=== PATIENT | female | born 1995 | race Caucasian/White ===

== ENCOUNTER 2016-09-19 17:46 | Inpatient (IN) ==
[2016-09-19] MEDS ORDERED: 0.9 % Sodium Chloride 1,000 ML IVC ONE (19:45)
[2016-09-19] MEDS ORDERED: Piperacillin/Tazobactam 3.375 GM in D5% in Water (Mini-Bag+) 100 ML IVPB ONE (19:50)
[2016-09-19] MEDS ORDERED: Ipratropium/Albuterol Neb 3 ML IH STA (19:50)
--- NOTE | 2016-09-19 19:54 | Emergency Department Note ---
Disposition Clinical Impression: Empyema of lung Sepsis Qualifiers: Sepsis type: Streptococcus group A Qualified Code(s): A40.0 - Sepsis due to streptococcus, group A Disposition: Admitted As Inpatient Condition: Fair SOB HPI - General Chief Complaint: ED Shortness of Breath/Dyspnea Stated Complaint: sent from PCP office for CT scan Time Seen by Provider: 09/19/16 19:33 Source: patient Limitations: no limitations Nursing Notes Reviewed: Yes Vital Signs Reviewed: Yes - History of Present Illness 21-year-old female presents to the emergency department with dyspnea. She has been short of breath for over a week. She saw a doctor about a week ago at that time a chest x-ray showed a left-sided pneumonia with effusion and was started on Levaquin. Despite finishing the antibiotic she had worsening dyspnea , intermittent fevers, cough and repeat x-ray today showed a cavitary lesion concerning for empyema. About a month ago she was diagnosed with strep throat that progressed into what sounds like sialoadenitis and was admitted at a local hospital in [place] for 3 days receiving IV antibiotics. In the meantime that seemed to clear up but then she developed respiratory symptoms. She has no history of clots or DVTs. She does have a history of polycystic ovarian syndrome, hypothyroidism and takes control. She denies any lower extremity swelling, pain or edema. She reports being on steroids about 2 weeks ago for generalized body aches. - Related Data Home Medications Medication Instructions Recorded Confirmed Ascorbate Calcium [Vitamin C] 500 mg PO DAILY 09/19/16 09/19/16 Cyanocobalamin (Vitamin B-12) 1,000 mcg PO DAILY 09/19/16 09/19/16 [Vitamin B12] Ibuprofen [Motrin] 600 mg PO Q6HR PRN 09/19/16 09/19/16 Levofloxacin [Levaquin] 750 mg PO DAILY 09/19/16 09/19/16 Levothyroxine [Synthroid] 50 mcg PO DAILY 09/19/16 09/19/16 Metformin [Glucophage] 2,000 mg PO DAILY 09/19/16 09/19/16 Norgestimate-Ethinyl Estradiol 1 tab PO DAILY 09/19/16 09/19/16 [Sprintec 28 Day Tablet] Allergies Allergy/AdvReac Type Severity Reaction Status Date / Time No Known Allergies Allergy Verified 09/19/16 17:52 All systems ED: reviewed and negative except as stated. Constitutional: Reports: fever Cardiovascular: Reports: chest pain (intermittent pressure), dyspnea on exertion , syncope Respiratory: Reports: cough, dyspnea, sputum production (thick and yellow). 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 No murmurs, rubs or gallops. Respiratory: Expiratory crackles on the left. She is breathing fast with a respiratory rate around 35. She has intermittent dry cough. She is able to speak in full sentences. Abdomen: Soft, nontender. No guarding, rebound or rigidity. Negative Chavez's , no point tenderness at McBurney's. Eyes: Conjunctiva clear without any scleral icterus HENT: Tympanic membranes are clear bilaterally without any redness or bulging. She has no palpable cervical adenopathy. Tonsils are not swollen and uvula is midline. Moist mucous membranes. No oral mucosal lesions. No difficulty swallowing, speaking or breathing. No stridor. Neuro: Alert and oriented 3, no motor or sensory deficits Musculoskeletal: No joint tenderness or swelling. There is no edema, calf tenderness, asymmetry or any signs of DVT Skin: No lesions. No diaphoresis. Normal turgor. Normal color Psych: Appropriate - General Limitations: no limitations General appearance: alert, in no apparent distress Course Course Narrative: presents to the emergency department with 1 week of progressive dyspnea, cough and fevers. A CTA was ordered which shows empyema at the left lung base with a large loculated component which extends along the lateral aspect of the left thoracic cavity causing extensive compressive atelectasis. Patient is febrile with a white count of 20,000 and we treated for sepsis with broad-spectrum antibiotics. She just finished a course of Levaquin so we added vancomycin and Zosyn in the emergency department. She was given fluids. Her lactate was 1.0. Normal renal function. Patient's vitals have been stable. I discussed this with the on-call cloth mercerizer operator, Dr. Villagran who feels this can be managed at this hospital and likely will be taken care of by cardiothoracic surgery. I then discussed with the on-call CT surgeon, Dr. Hurtado who states he is comfortable managing and taking care of this patient. Antibiotics have been given in the emergency department. I spoke with the on-call hospitalist, Dr. Borrego who accepted for admission, no further orders at this time. Vital Signs Temperature 98.8 F 09/19/16 17:50 Pulse Rate 128 09/19/16 17:50 Respiratory Rate 16 09/19/16 17:50 Blood Pressure 123/80 09/19/16 17:50 O2 Sat by Pulse Oximetry 95 09/19/16 17:50 Temperature 97.7 F 09/21/16 15:30 Pulse Rate 89 09/21/16 18:00 Respiratory Rate 23 09/21/16 19:42 Blood Pressure 103/66 09/21/16 18:00 O2 Sat by Pulse Oximetry 95 09/21/16 19:42 Oxygen Delivery Oxygen Delivery Room Air Shortness of Breath/Dyspnea - Lab Data Result diagrams: 09/21/16 12:15 09/21/16 19:45 Lab Results 09/19/16 09/19/16 09/19/16 Range/Units 20:05 20:05 20:05 WBC 20.2 H (4.3-11.1) K/mcL RBC 4.07 (3.82-4.97) M/mcL Hgb 11.4 L (11.5-15.4) g/dL Hct 34.6 L (35.3-44.9) % MCV 85.0 (83.0-100.0) fL MCH 28.0 (28.0-33.3) pg MCHC 32.9 (31.6-35.5) g/dL RDW 14.2 (11.5-14.5) % Plt Count 364 (140-400) K/mcL MPV 10.1 (9.4-12.4) fL Immature Gran % 5.8 H (0-4) % Seg Neutrophils % 75.2 % Lymphocytes % 10.8 % Monocytes % 7.4 % Eosinophils % 0.2 % Basophils % 0.6 % Neutrophils # 15.2 H (1.6-8.9) K/mcL Lymphocytes # 2.2 (0.6-4.6) K/mcL Monocytes # 1.5 H (0.0-1.3) K/mcL Eosinophils # 0.0 (0.0-0.6) K/mcL Basophils # 0.1 (0.0-0.2) K/mcL Toxic Granulation Present A (Not Present) Platelet Estimate Normal (Normal) Sodium 137 (136-145) mEq/L Potassium 3.9 (3.5-4.5) mEq/L Chloride 101 (98-109) mEq/L Carbon Dioxide 23 (19-29) mEq/L BUN 6 L (7-20) mg/dL Creatinine 0.77 (0.57-1.11) mg/dL Est GFR ( Amer) > 60 (> 60) Est GFR (Non-Af Amer) > 60 (> 60) BUN/Creatinine Ratio 8 (6-26) Glucose 89 (70-99) mg/dL POC Glucose (58-89) Calculated Osmolality 281 (280-300) Lactic Acid (0.5-2.2) mmol/L Calcium 9.0 (8.6-10.8) mg/dL Troponin I 0.00 (0-0.03) ng/mL TSH 1.706 (0.350-4.840) mcIU/mL 09/19/16 09/20/16 Range/Units 20:05 00:24 WBC (4.3-11.1) K/mcL RBC (3.82-4.97) M/mcL Hgb (11.5-15.4) g/dL Hct (35.3-44.9) % MCV (83.0-100.0) fL MCH (28.0-33.3) pg MCHC (31.6-35.5) g/dL RDW (11.5-14.5) % Plt Count (140-400) K/mcL MPV (9.4-12.4) fL Immature Gran % (0-4) % Seg Neutrophils % % Lymphocytes % % Monocytes % % Eosinophils % % Basophils % % Neutrophils # (1.6-8.9) K/mcL Lymphocytes # (0.6-4.6) K/mcL Monocytes # (0.0-1.3) K/mcL Eosinophils # (0.0-0.6) K/mcL Basophils # (0.0-0.2) K/mcL Toxic Granulation (Not Present) Platelet Estimate (Normal) Sodium (136-145) mEq/L Potassium (3.5-4.5) mEq/L Chloride (98-109) mEq/L Carbon Dioxide (19-29) mEq/L BUN (7-20) mg/dL Creatinine (0.57-1.11) mg/dL Est GFR ( Amer) (> 60) Est GFR (Non-Af Amer) (> 60) BUN/Creatinine Ratio (6-26) Glucose (70-99) mg/dL POC Glucose 162 H (58-89) Calculated Osmolality (280-300) Lactic Acid 1.0 (0.5-2.2) mmol/L Calcium (8.6-10.8) mg/dL Troponin I (0-0.03) ng/mL TSH (0.350-4.840) mcIU/mL - EKG Data EKG attestation: Yes I reviewed and interpreted this EKG. EKG results narrative: EKG sinus tach at 132. Normal axis. Normal QRS and ST segments. No old for comparison. Critical Care Time Critical Care Time: Yes Total Critical Care Time: 35 Attestation: Critical care performed: Time is exclusive of separately billable procedures. Time includes: direct patient care, patient reassessment, coordination of patient care, interpretation of data (laboratory data, radiology data, and respiratory data), review of patient's medical records, medical consultation and documentation of patient care. Procedures included in critical care time: Procedures excluded from critical care time: Attestation Statement - Attestation Attestation: I examined this patient and my medical decision-making was reviewed with the REVIEW ASSISTANT/PA/Advanced Practice Nurse/Resident Physician. I agree with the documented findings, disposition and treatment plan as described except to the extent set forth below. Patient to the emergency department with difficulty in breathing. Patient recently seen by her PCP and diagnosed with pneumonia. She has been on Levaquin. They did an outpatient chest x-ray today and she was sent to the ED. On exam she is awake alert no acute distress. She has diminished breath sounds in the left base. Diffuse rhonchi and wheezing. Plan. Patient will large effusion will likely need a thoracentesis. Will check CT labs and admit.
[2016-09-19 20:21] LABS: Basophils # 0.1 K/mcL (0.0-0.2); Basophils % 0.6 %; Eosinophils % 0.2 %; Hematocrit 34.6 % (35.3-44.9); Hemoglobin 11.4 g/dL (11.5-15.4); Immature Granulocytes % 5.8 % (0-4); Lymphocytes # 2.2 K/mcL (0.6-4.6); Lymphocytes % 10.8 %; Mean Corpuscular HGB Conc 32.9 g/dL (31.6-35.5); Mean Platelet Volume 10.1 fL (9.4-12.4); Monocytes # 1.5 K/mcL (0.0-1.3); Monocytes % 7.4 %; Neutrophils # 15.2 K/mcL (1.6-8.9); Platelet Count 364 K/mcL (140-400); Red Blood Count 4.07 M/mcL (3.82-4.97); Red Cell Distribution Width 14.2 % (11.5-14.5); Segmented Neutrophils % 75.2 %
[2016-09-19 20:36] LABS: BUN/Creatinine Ratio 8 (6-26); Blood Urea Nitrogen 6 mg/dL (7-20); Carbon Dioxide 23 mEq/L (19-29); Chloride 101 mEq/L (98-109); Glucose 89 mg/dL (70-99); Osmolality,Calculated 281 (280-300); Potassium 3.9 mEq/L (3.5-4.5); Sodium 137 mEq/L (136-145); eGFR For African Americans > 60 (> 60); eGFR For Non-African Americans > 60 (> 60)
[2016-09-19 20:43] LABS: Toxic Granulation Present (Not Present)
[2016-09-19 20:44] LABS: Platelet Estimate Normal (Normal)
[2016-09-19 20:58] LABS: Thyroid Stimulating Hormone 1.706 mcIU/mL (0.350-4.840)
[2016-09-19] MEDS ORDERED: Naloxone 0.4 MG/ML INJ IVP PRN (21:47)
[2016-09-19] MEDS ORDERED: Vancomycin 1,500 MG in D5% in Water 250 ML IVPB SCH ×2 (22:00→23:45)
[2016-09-19] MEDS ORDERED: Vancomycin 1,500 MG in D5% in Water 250 ML IVPB ONE (22:00)
--- NOTE | 2016-09-19 23:05 | Internal Med History&Physical ---
Date of Encounter: 09/19/16 Time of Encounter: 23:03 Assessment and Plan (1) Sepsis Current visit: Yes Status: Acute Patient had streptococcal sore throat about 3 weeks ago complicated by what appears to be sialadenitis. She was given steroids. She developed left-sided chest pain which is of breath, fever and chills. Exam reveals reduced breath sounds in the left lower lung. CT scan reveals evidence of empyema/loculated effusion on the left side. Patient will be admitted to inpatient status with a diagnosis of empyema. High risk due to need for chest tube placement for the resolution of her empyema. Expected discharge disposition is to home. Cardiothoracic surgery has been consulted. Broad-spectrum antibiotic therapy for now. Once the patient has chest tube placed, can de-escalate antibiotic therapy. Pain control. Breathing treatments. Patient developed empyema likely due to being on steroids which caused immunosuppression. However, patient's maternal aunt has a history of recurrent histoplasmosis. This is concerning for possible C5-9 deficiency. After the patient is discharged, screening for deficiency with CH50 levels should be considered. Qualifiers: Sepsis type: Streptococcus group A Qualified Code(s): A40.0 - Sepsis due to streptococcus, group A (2) Empyema of lung Current visit: Yes Status: Acute As above. Cardiac thoracic surgery consult. Broad spectrum antibody therapy. Patient requires Chest tube replacement for clearance of empyema. (3) Hypothyroidism Current visit: Yes Status: Chronic Check TSH. Continue home dose of Synthroid. Qualifiers: Hypothyroidism type: acquired Qualified Code(s): E03.9 - Hypothyroidism, unspecified (4) Polycystic ovarian disease Current visit: Yes Status: Chronic Hold metformin while the patient is hospitalized. Resume the time of discharge. (5) Obesity (BMI 30-39.9) Current visit: No Status: Chronic Internal Medicine - H&P: HPI Chief complaint: Chest pain; Shortness of breath Admitted From: Emergency Dept Plans for Post Hospital Care: Home History of present illness: Ms. Christian is a 21 year old female who presented to the hospital due to chest pain on her left side associated with shortness of breath. Patient had developed a streptococcal sore throat on August 28 and was admitted and received intravenous antibiotics for the same. The course was complicated by development of salivary gland infection. The patient was started on steroids and initially received intravenous steroids and was sent home on by mouth antibiotics and steroids for a 10 day course. She finished the steroids on September 04. On September 05, she started experiencing left-sided chest pain that was sharp and stabbing in nature which was worsening with deep breaths and 6/10 in intensity without any radiation. No relieving factors. The patient presented to the primary care physician and a chest x-ray was performed. It revealed left lower lobe pneumonia. The patient was given outpatient antibiotic therapy with Levaquin. However, the patient continued to have fever and chills and worsening chest pain. She was also experiencing shortness of breath with minimal to moderate activity. She had some nausea and had an episode of vomiting. Hence, she presented to her primary care physician again and underwent a chest x-ray which showed worsening left-sided pleural effusion. She was sent to the emergency room. A CT scan of the chest was done which revealed loculated pleural effusion on the left side concerning for empyema. The patient is being admitted for the same. She reports that she had a fever of 103 yesterday at home. Denies palpitations or feeling lightheaded. Past Med Surg Social Fam HX - Past Medical History Attestation: Yes The following information was validated with the patient. Source: patient Medical history: thyroid disease, other (PCOD) Psychiatric history: no psych history - Past Surgical History Surgical History: no surgical history - Social History Smoking Status: Never smoker Alcohol use: occasionally Drug use: none Current living situation: Home, With Family Activity Level: Independent ambulation Recent Out of Country Travel Within the Last 8 Weeks: No - Family History Maternal Hx Family Respiratory Disorders: Yes (Histoplasmosis recurrent in maternal aunt) Mother Hx Family Cardiac Disorders: Yes (HTN) Internal Medicine - H&P: Meds Ascorbate Calcium [Vitamin C] 500 mg PO DAILY 09/19/16 [History] Cyanocobalamin (Vitamin B-12) [Vitamin B12] 1,000 mcg PO DAILY 09/19/16 [History ] Ibuprofen [Motrin] 600 mg PO Q6HR PRN 09/19/16 [History] Levofloxacin [Levaquin] 750 mg PO DAILY 09/19/16 [History] Levothyroxine [Synthroid] 50 mcg PO DAILY 09/19/16 [History] Metformin [Glucophage] 2,000 mg PO DAILY 09/19/16 [History] Norgestimate-Ethinyl Estradiol [Sprintec 28 Day Tablet] 1 tab PO DAILY 09/19/16 [History] Allergies No Known Allergies Allergy (Verified 09/19/16 17:52) All Systems PM: A 10-system review of systems was performed and is negative for pertinent findings except as documented above in the HPI. Review of systems: 10 systems have been reviewed and are negative except as mentioned in the history of present illness - Constitutional Vitals: Temp Pulse Resp BP Pulse Ox 102.6 F H 128 18 118/80 95 09/19/16 21:11 09/19/16 21:43 09/19/16 21:43 09/19/16 21:43 09/19/16 21:43 Exam: Gen.: Lying in bed. Moderate distress. Eyes: Pupils equal, round and reactive to light. Extraocular muscles intact. ENT: Moist mucous membranes. No oropharyngeal erythema or discharge. Chest: Reduced breath sounds left lower lobe. Tenderness to palpation. CVS: First and second heart sounds present. No murmurs, rubs or gallops. Tachycardia present. Abdomen: Soft, nontender, obese. Bowel sounds present. No hepatosplenomegaly. Skin: No decubitus ulcers appreciated. EDGE BONDER: No focal neuro deficits present. Psychiatric: Alert, awake and oriented to time, place and person. Lymphatic system: No lymphadenopathy appreciated Internal Med - H&P Results - Labs CBC & Chem 7: 09/19/16 20:05 09/19/16 20:05 Labs: Short CBC 09/19/16 Range/Units 20:05 WBC 20.2 H (4.3-11.1) K/mcL Hgb 11.4 L (11.5-15.4) g/dL Hct 34.6 L (35.3-44.9) % Plt Count 364 (140-400) K/mcL Neutrophils # 15.2 H (1.6-8.9) K/mcL BMP 09/19/16 20:05 Sodium 137 Potassium 3.9 Chloride 101 Carbon Dioxide 23 BUN 6 L Creatinine 0.77 Glucose 89 Calcium 9.0 Cardiac Enzymes 09/19/16 Range/Units 20:05 Troponin I 0.00 (0-0.03) ng/mL - EKG Data -: EKG Interpreted by Myself EKG shows normal: sinus rhythm, ST-T waves (No ST-T wave changes suggestive of ischemia) Rate: tachycardia - Impressions ITS Impressions Chest CTA 09/19/16 19:46 IMPRESSION: Findings are compatible with empyema at the left lung base, with a large loculated component which extends along the lateral aspect of the left thoracic cavity and causes extensive compressive atelectasis. D/ / 09/19/2016 21:24:33 Robert Yang MD / robert Interpreting Provider: Robert Yang MD - Diagnostic Studies CT scan - chest Status: image reviewed by me (Large left empyema/loculated effusion)
[2016-09-19] MEDS ORDERED: Ketorolac 15 MG/ML VIAL IVP PRN (23:06)
[2016-09-19] MEDS: Ipratropium Neb 0.5 MG NEBULIZER IH SCH (23:23)
[2016-09-20] MEDS: *HR* Heparin 5,000 UNIT/ML VIAL SQ SCH ×4 (00:26→21:35)
[2016-09-20] MEDS: 0.9 % Sodium Chloride 1,000 ML IVC SCH ×2 (01:20→11:39)
[2016-09-20] MEDS: Ondansetron 4 MG/2 ML VIAL IVP PRN ×3 (03:21→19:30)
[2016-09-20] MEDS: Ipratropium Neb 0.5 MG NEBULIZER IH SCH ×5 (04:28→20:51)
[2016-09-20 05:01] LABS: Basophils # 0.1 K/mcL (0.0-0.2); Basophils % 0.4 %; Hematocrit 32.3 % (35.3-44.9); Hemoglobin 10.8 g/dL (11.5-15.4); Immature Granulocytes % 3.8 % (0-4); Lymphocytes # 1.8 K/mcL (0.6-4.6); Lymphocytes % 8.8 %; Mean Corpuscular HGB Conc 33.4 g/dL (31.6-35.5); Mean Corpuscular Hemoglobin 28.4 pg (28.0-33.3); Mean Platelet Volume 10.4 fL (9.4-12.4); Monocytes # 1.6 K/mcL (0.0-1.3); Monocytes % 7.7 %; Platelet Count 325 K/mcL (140-400); Red Cell Distribution Width 14.4 % (11.5-14.5); Segmented Neutrophils % 79.3 %
[2016-09-20] MEDS ORDERED: Metoclopramide 10 MG/2 ML VIAL IVP PRN (05:05)
[2016-09-20] MEDS: Acetaminophen 325 MG TABLET PO PRN ×3 (05:25→21:28)
[2016-09-20] MEDS: Piperacillin/Tazobactam 3.375 GM in D5% in Water (Mini-Bag+) 100 ML IVPB SCH ×3 (05:27→23:15)
--- NOTE | 2016-09-20 08:10 | Cardiothoracic Consult Note ---
Date of Encounter: 09/20/16 Time of Encounter: 08:08 Assessment and Plan (1) Empyema of lung Current Visit: Yes Status: Acute The patient is a 21-year-old lady with hypothyroidism who was admitted to [facility] after experiencing chills, fever, shortness of breath, and left-sided chest pain. The patient had an outpatient chest x-ray which revealed a loculated left pleural effusion and this was confirmed by chest CT performed at [facility] emergency department last evening. The patient has a left pleural empyema which will require a left thoracotomy and decortication. This procedure will be performed tomorrow. The assessment and plan as outlined above was discussed with the patient and/or family members who expressed understanding and agreement. All questions were answered. - History of Present Illness Consult date: 09/20/16 Requesting physician: Natalio Borrego Consult reason: Left pleural empyema. Chief complaint: Left-sided chest pain, chills, fever History of present illness: Ms. Christian is a 21 year old lady with hypothyroidism developed strep throat on August 27, 2016. The patient was initially treated with oral antibiotics; however, the throat pain continued. At this time she complained of fever and fatigue. The patient returned home from college and was seen by her primary care physician. The patient had persistent symptoms and was evaluated at [facility]. At this time a neck CT revealed sialadenitis and was admitted for intravenous antibiotic therapy. After discharge the patient continued to feel poorly, complaining of shortness of breath, chills, fever, and easy fatigability. The patient is again seen by her primary care physician who ordered a chest x-ray. This revealed a loculated left pleural effusion and the patient was then referred to [facility] emergency department for further evaluation. A chest CT performed last evening revealed a loculated left pleural effusion consistent with an empyema. The patient was admitted for antibiotic therapy and drainage of the effusion. Past Med Surg Social Fam HX - Past Medical History Medical history: diabetes, thyroid disease, other (Polycystic ovary disease.) Psychiatric history: anxiety, depression - Past Surgical History Surgical History: no surgical history - Social History Smoking Status: Never smoker Smokeless Tobacco Status: No Alcohol use: occasionally Drug use: none Occupational status: student Current living situation: Home - Independent Activity Level: Independent ambulation Recent Out of Country Travel Within the Last 8 Weeks: No Exposure or Possible Exposure to Illness During Travel: No - Family History Maternal Hx Family Respiratory Disorders: Yes (Histoplasmosis recurrent in maternal aunt) Mother Hx Family Cardiac Disorders: Yes (HTN) Medications and Allergies Ascorbate Calcium [Vitamin C] 500 mg PO DAILY 09/19/16 [History] Cyanocobalamin (Vitamin B-12) [Vitamin B12] 1,000 mcg PO DAILY 09/19/16 [History ] Ibuprofen [Motrin] 600 mg PO Q6HR PRN 09/19/16 [History] Levofloxacin [Levaquin] 750 mg PO DAILY 09/19/16 [History] Levothyroxine [Synthroid] 50 mcg PO DAILY 09/19/16 [History] Metformin [Glucophage] 2,000 mg PO DAILY 09/19/16 [History] Norgestimate-Ethinyl Estradiol [Sprintec 28 Day Tablet] 1 tab PO DAILY 09/19/16 [History] Allergies No Known Allergies Allergy (Verified 09/19/16 17:52) All Systems Review: A 10-system review of systems was performed and is negative for pertinent findings except as documented above in the HPI. Physical Examination Vital Signs, Last 4 Hours Temp Pulse Resp BP Pulse Ox 09/20/16 06:40 100.0 F H 120 17 105/63 96 09/20/16 04:28 17 91 L General: Conversant, No Apparent Distress Neck: No JVD, Normal carotid pulses Cardiac: Reg Rate and Rhythm, Normal S1 and S2, No Murmur Lungs: Normal Breath Sounds (Right lung myers.), Decreased breath sounds (Left lung myers.), No Wheeze, Rales, Rhonchi (Right lung myers.) Neuro: Alert and responsive, No focal deficits noted Vascular: Normal capillary refill Abdomen: Soft, Non-tender Skin: No rashes noted on visualized skin Extremities: No Clubbing, No Cyanosis, No Edema, Normal Pulses Results 09/20/16 04:13 09/19/16 20:05 Lab Results, Last 24 hours 09/20/16 04:13 WBC 20.2 H Hgb 10.8 L Hct 32.3 L Plt Count 325 - Imaging Chest Xray: image reviewed (Loculated left pleural effusion.) Consult Discharge Plan - Plan Referrals: Kathy Interiano, STRINGS TEACHER [Primary Care Provider] -
[2016-09-20] MEDS: Vancomycin 1,500 MG in D5% in Water 250 ML IVPB SCH ×2 (10:01→23:50)
[2016-09-20] MEDS ORDERED: *HR* Morphine 2 MG/ML SYRINGE IVP PRN (12:43)
[2016-09-20] MEDS ORDERED: *HR* Promethazine 25 MG/ML VIAL IVP PRN (12:55)
--- NOTE | 2016-09-20 12:58 | Internal Med Progress Note ---
Date of Encounter: 09/20/16 Time of Encounter: 11:00 - Assessment and plan (1) Empyema of lung Current Visit: Yes Status: Acute Assessment and plan: Patient endorsing mild shortness of breath above her norm, continue supplemental oxygenation as needed. Febrile this morning, currently afebrile. Leukocytosis noted and stable at 20.2. Continue Ancef, Zosyn, vancomycin. Cardiac thoracic surgery on board. Plan is for thoracentesis and decortication tomorrow. Patient with point tenderness chest pain to left anterior and axillary chest consistent with costochondritis. Troponin 0.00. Pain not resolved with Toradol, low-dose morphine added. ITS Impressions Chest CTA 09/19/16 19:46 IMPRESSION: Findings are compatible with empyema at the left lung base, with a large loculated component which extends along the lateral aspect of the left thoracic cavity and causes extensive compressive atelectasis. D/ / 09/19/2016 21:24:33 Robert Yang MD / robert Interpreting Provider: Robert Yang MD (2) Costochondral chest pain Current Visit: Yes Status: Acute Assessment and plan: Patient with point tenderness under her left breast radiating to her left axillary area. Pain is not relieved by Toradol. Toradol discontinued and morphine ordered. Incentive spirometry also encouraged. (3) Leukocytosis Current Visit: Yes Status: Acute Assessment and plan: Leukocytosis is stable at 20.2. We will continue to trend. Broad-spectrum antibiotics on board. Patient is on Ancef, Zosyn, vancomycin. Byron is for thoracentesis with decortication tomorrow per cardiothoracic surgery. (4) Sepsis Current Visit: Yes Status: Acute Assessment and plan: Stable. Fever has resolved. Tachycardia trending down. Blood pressure mildly hypotensive however she is stable and alert and oriented 3. Leukocytosis noted and is stable. Continue broad-spectrum antibiotics and IV fluids. Ancef , Zosyn, vancomycin. Cardiac thoracic surgery on board, plan is for thoracentesis and decortication tomorrow. Qualifiers: Sepsis type: Streptococcus group A Qualified Code(s): A40.0 - Sepsis due to streptococcus, group A (5) Hypothyroidism Current Visit: Yes Status: Chronic Assessment and plan: TSH normal Qualifiers: Hypothyroidism type: acquired Qualified Code(s): E03.9 - Hypothyroidism, unspecified (6) Polycystic ovarian disease Current Visit: Yes Status: Chronic (7) Obesity (BMI 30-39.9) Current Visit: No Status: Chronic - Subjective Interval history: Patient seen and examined. On examination, patient is sitting upright in bed. Patient alert and oriented 3 and currently complaining of left sided pain under her left breast radiating around to her left axillary area. She denies any nausea or vomiting. She is endorsing mild shortness of breath. - Constitutional Vitals: Temp Pulse Resp BP Pulse Ox 98.0 F 104 18 99/65 96 09/20/16 11:11 09/20/16 11:11 09/20/16 11:19 09/20/16 11:11 09/20/16 11:19 General appearance: Present: A&O X 3, pleasant, no acute distress, answers questions appropriately - Head Head exam: Present: atraumatic, normocephalic - Eye Eye exam: Present: PERRL, conjuntiva pink, sclera anicteric Pupils: Present: PERRL - Neck Neck exam general surgery: Present: supple, trachea midline. Absent: lymphadenopathy - Respiratory Respiratory exam: Present: chest wall tenderness, decreased breath sounds. Absent: accessory muscle use, rales, respiratory distress, rhonchi, wheezes - Cardiovascular Cardiovascular exam: Present: RRR, +S1, +S2, tachycardia. Absent: diastolic murmur, gallop, rubs, systolic murmur - GI/Abdominal GI/Abdominal exam: Present: normal bowel sounds, soft, no peritoneal signs. Absent: distended, tenderness - Extremities Exam Extremities exam: Present: warm, radial pulses palpable and symetrical. Absent : calf tenderness, cyanotic, pedal edema - Neurological Exam Neurological exam: Present: alert, CN II-XII intact, oriented X3, no focal deficits, strengths equal and symetr throughout. Absent: pronater drift, facial droop, speech deficit - Skin Skin exam: Present: dry, intact, pallor, warm Internal Medicine: Result - Labs CBC & Chem 7: 09/20/16 04:13 09/19/16 20:05 Labs: Short CBC 09/20/16 Range/Units 04:13 WBC 20.2 H (4.3-11.1) K/mcL Hgb 10.8 L (11.5-15.4) g/dL Hct 32.3 L (35.3-44.9) % Plt Count 325 (140-400) K/mcL Neutrophils # 16.0 H (1.6-8.9) K/mcL Consult Discharge Plan - Plan Referrals: Kathy Interiano, CAGE MAKER [Primary Care Provider] -
[2016-09-20] MEDS ORDERED: *HR* Morphine 2 MG/ML SYRINGE ONE (13:01)
[2016-09-20] MEDS: *HR* Morphine 2 MG/ML SYRINGE IVP PRN ×3 (13:15→21:34)
--- NOTE | 2016-09-20 14:29 | Electrocardiograph Report ---
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
[2016-09-21] MEDS: Ipratropium Neb 0.5 MG NEBULIZER IH SCH ×6 (00:11→19:42)
[2016-09-21] MEDS: 0.9 % Sodium Chloride 1,000 ML IVC SCH ×4 (01:28→16:10)
[2016-09-21 04:40] LABS: Basophils # 0.1 K/mcL (0.0-0.2); Basophils % 0.4 %; Hematocrit 33.1 % (35.3-44.9); Hemoglobin 10.5 g/dL (11.5-15.4); Immature Granulocytes % 3.5 % (0-4); Lymphocytes # 2.1 K/mcL (0.6-4.6); Lymphocytes % 8.7 %; Mean Corpuscular HGB Conc 31.7 g/dL (31.6-35.5); Mean Corpuscular Hemoglobin 28.5 pg (28.0-33.3); Mean Corpuscular Volume 89.9 fL (83.0-100.0); Mean Platelet Volume 10.9 fL (9.4-12.4); Monocytes # 1.7 K/mcL (0.0-1.3); Monocytes % 7.3 %; Neutrophils # 19.1 K/mcL (1.6-8.9); Platelet Count 282 K/mcL (140-400); Red Blood Count 3.68 M/mcL (3.82-4.97); Red Cell Distribution Width 14.8 % (11.5-14.5); Segmented Neutrophils % 80.1 %
[2016-09-21 04:44] LABS: INR 1.5; Prothrombin Time 16.6 Seconds (9.4-12.1)
[2016-09-21 04:57] LABS: Calcium 8.3 mg/dL (8.6-10.8)
[2016-09-21] MEDS ORDERED: Acetaminophen IV 1,000 MG/100 ML INFUS..BTL IVPB STA (05:02)
[2016-09-21] MEDS: Piperacillin/Tazobactam 3.375 GM in D5% in Water (Mini-Bag+) 100 ML IVPB SCH ×3 (05:39→22:50)
[2016-09-21] MEDS ORDERED: Dexamethasone 4 MG/ML VIAL ONE (06:47)
[2016-09-21] MEDS ORDERED: *HR* FentaNYL (PF) 250 MCG/5 ML VIAL ONE (06:47)
[2016-09-21] MEDS ORDERED: *HR* Midazolam HCl 5 MG/5 ML VIAL IVP ONE (06:47)
[2016-09-21] MEDS ORDERED: *HR* Rocuronium Bromide 50 MG/5 ML VIAL ONE ×3 (06:47→09:27)
[2016-09-21] MEDS ORDERED: *HR* Propofol 200 MG/20 ML VIAL IVP ONE (06:47)
[2016-09-21] MEDS ORDERED: *HR* Phenylephrine 10 MG/ML VIAL ONE (06:47)
[2016-09-21] MEDS ORDERED: Ondansetron 4 MG/2 ML VIAL ONE (06:47)
[2016-09-21] MEDS ORDERED: ceFAZolin 2,000 MG in D5% in Water (Mini-Bag+) 100 ML IVPB ONE (07:00)
--- NOTE | 2016-09-21 07:15 | Anesthesia Evaluation PreOp ---
Date of Encounter: 09/21/16 Time of Encounter: 07:16 - Past History Planned Operation: Left thoracotomy with decortication Cardiac History: Denies any Significant Hx Pulmonary History: Denies Any Significant HX DRY PAN CHARGER History: Other (Depression, anxiety) Other Medical History: Diabetes Type II (pre-diabetic), Other (Hypothyroidism and polycystic ovarian disease) Anesthesia History: No Prior Anesthetic Complications (No prior anesthestics) : No Test: Negative Alcohol Use: occasionally Drug use: none Medications and Allergies Ascorbate Calcium [Vitamin C] 500 mg PO DAILY 09/19/16 [History] Cyanocobalamin (Vitamin B-12) [Vitamin B12] 1,000 mcg PO DAILY 09/19/16 [History ] Ibuprofen [Motrin] 600 mg PO Q6HR PRN 09/19/16 [History] Levofloxacin [Levaquin] 750 mg PO DAILY 09/19/16 [History] Levothyroxine [Synthroid] 50 mcg PO DAILY 09/19/16 [History] Metformin [Glucophage] 2,000 mg PO DAILY 09/19/16 [History] Norgestimate-Ethinyl Estradiol [Sprintec 28 Day Tablet] 1 tab PO DAILY 09/19/16 [History] Allergies No Known Allergies Allergy (Verified 09/19/16 17:52) - Meds/Allergy Pre-op Review Medications Reviewed: Yes Allergies Reviewed: Yes Beta Blockers on Current Med List: No Anesthesia Results - Labs 09/21/16 04:11 09/21/16 04:11 - Imaging Chest x-ray: report reviewed Additional studies: CTA shows empyema left lung base Anesthesia Exam Selected Entries 09/21/16 05:35 Temperature 101.2 F H Pulse Rate 127 Respiratory Rate 36 Blood Pressure 142/87 O2 Sat by Pulse Oximetry 95 Height: 1.68 meters or 5.5 in Weight: 108kg NPO (# of Hours): 8 Pain Scale: 3 Pain Scale Used: Numeric (1 - 10) - HEENT Pupil (Motor): EOMI Mallampati: II Oral Opening: Greater than 3 - DRY PAN CHARGER LOC: Oriented DRY PAN CHARGER Motor: Normal RUE, Normal LUE, Normal RLE, Normal LLE, Normal Face DRY PAN CHARGER Sensory: Normal: RUE, LUE, RLE, LLE, Face - Cardiac Rhythm: Regular Murmur: None - Pulmonary Breath Sounds: bilateral Clear (decreased on left base) Respiratory Effort: Symmetrical Anesthesia Assess/Plan ASA Score: 2 Modified Reading Scale for Level of Consciousness: Cooperative, oriented, and tranquil Anesthetic Plan: General Autologous Blood: No Monitoring Plan: Standard Monitors Recovery Plan: ICU (Discussed risks of GA, possible need for lakeisha and blood. Unable to offer epidural due to infection. Questions answered and agrees to proceed.)
[2016-09-21] MEDS ORDERED: *HR* Morphine 10 MG/ML VIAL ONE (09:00)
[2016-09-21] MEDS ORDERED: Heparin 1,000 UNITS/500 mL NS 500 ML ONE (09:03)
--- NOTE | 2016-09-21 11:24 | Operative Note ---
Date of procedure: 09/21/16 Pre-op diagnosis: Left pleural empyema. Post-op diagnosis: same Procedure: 1. Left posteriolateral thoracotomy. 2. Decortication, complete. Implants: None. Complications: None. Anesthesia: JEROME Surgeon: Mindi Hurtado Phlebotomy Technologist: Mak Castro Estimated blood loss (cc): 200 Specimen: 1. Pleural fluid for culture 2. Left pleural peel Condition: stable Disposition: ICU Procedure in Detail: INDICATIONS FOR OPERATION: Ms. Christian is a 21 year old lady with hypothyroidism developed strep throat on August 27, 2016. The patient was initially treated with oral antibiotics; however, the throat pain continued. At this time she complained of fever and fatigue. The patient returned home from college and was seen by her primary care physician. The patient had persistent symptoms and was evaluated at [facility]. At this time a neck CT revealed sialadenitis and was admitted for intravenous antibiotic therapy. After discharge the patient continued to feel poorly, complaining of shortness of breath, chills, fever, and easy fatigability. The patient is again seen by her primary care physician who ordered a chest x-ray. This revealed a loculated left pleural effusion and the patient was then referred to [facility] emergency department for further evaluation. A chest CT performed last evening revealed a loculated left pleural effusion consistent with an empyema. The patient was admitted for antibiotic therapy and drainage of the effusion. FINDINGS AT OPERATION: The patient had 400-500 mL of yellow creamy pungent smelling pus within the left pleural space. The patient also had a thick pleural peel involving both the parietal pleura and the visceral pleura. DESCRIPTION OF OPERATION: After obtaining informed consent from the patient, she was taken to the operating room where satisfactory general trach anesthetic was induced. A double -lumen endotracheal tube was inserted as were other appropriate monitoring lines. The patient was then turned to the right lateral decubitus position, and her left chest was prepped and draped in a sterile fashion. A standard posterolateral thoracotomy incision was then made through the skin and subcutaneous tissue. The latissimus dorsi muscle group was divided and the serratus anterior muscle group was reflected medially. The fifth intercostal space was entered. Upon entering the pleural space a large amount of yellow creamy pungent smelling pus was expressed through the incision. This was cultured and sent for aerobic, anaerobic, fungal, and TB cultures. The ribs were and a general expiration was performed. The patient had a thick pleural peel involving the parietal pleura and visceral pleura. This was removed using blunt forceps dissection. Two tears in the left lower lobe lung parenchyma were made during the dissection and these were closed using 4-0 Vicryl suture. Once the peel had been removed from the diaphragm and the left lower lobe, attention was turned to the left upper lobe. The skin incision was lengthened and a portion of the serratus anterior muscle group was divided in order to obtain better access to the left upper lobe. The visceral peel was was less developed and difficult to remove; however, there was expansion of the left upper lobe with ventilation. The left pleural cavity was then irrigated with 5 L of warm saline solution. Two chest tubes were placed, one anteriorly one posteriorly. The ribs were then reapproximated using #1 Vicryl suture and the serratus anterior muscle group, latissimus dorsi muscle group, and subcutaneous tissues were reapproximated using running Vicryl sutures. The skin edges were reapproximated using panchito. Sterile dressings were applied. The patient was then transferred to the ICU intubated. There were no intraoperative complications, and instrument, needle, and sponge count were correct at the end of operation.
[2016-09-21] MEDS ORDERED: *HR* Morphine 2 MG/ML SYRINGE IVP PRN ×2 (11:40)
[2016-09-21] MEDS ORDERED: 0.9 % Sodium Chloride w KCl 20 MEQ/1,000 ML MLS IV SCH (11:45)
--- NOTE | 2016-09-21 11:51 | Pulmonology Consult Note ---
<Juni Morris - Last Filed: 09/21/16 11:48> Date of Encounter: 09/21/16 Time of Encounter: 11:48 Assessment and Plan (1) Empyema of lung Current Visit: Yes Status: Acute Patient had thoracotomy with decortication today. Chest tubes are in place. Fluid from surgery has been sent for analysis. We will await culture results. Given the patient's recent diagnosis of strep throat there is a concern that this is a strep species. Patient will be covered broadly with vancomycin and Zosyn until final culture and sensitivities return. Further management per CT surgery. Patient remains intubated in the immediate postop setting at this time. She is not on a sedation. As the patient wakes up we will evaluate for possible liberation from the ventilator later today. We will check an ABG. (2) Acute kidney injury Current Visit: Yes Status: Acute On admission the patient had normal kidney function. Creatinine this morning was 1.98. Likely due to hypovolemia in the setting of severe infection and empyema. We will recheck labs. If creatinine remains elevated we will fluid hydrate. Patient has good urine output at this time. We will continue to monitor. (3) Hypothyroidism Current Visit: Yes Status: Chronic Patient takes 50 mcg of Synthroid a day. This is on hold as the patient is nothing by mouth at this time. Hopefully the patient will be expected soon and can resume her home medications. We will continue to monitor. Qualifiers: Hypothyroidism type: acquired Qualified Code(s): E03.9 - Hypothyroidism, unspecified (4) DVT prophylaxis Current Visit: Yes Status: Acute Heparin 5000 units subcutaneous 3 times a day. History of Present Illness Consult date: 09/21/16 Requesting physician: Mindi Hurtado Reason for consult: pneumonia Chief complaint: Empyema History of present illness: Patient is a 21-year-old female who presents with empyema. The patient apparently was initially diagnosed with strep throat recently was treated as an outpatient and continued to decline with cough, shortness of breath, chest pain. She then had an outpatient chest x-ray that showed a large pleural effusion and CAT scan revealed a loculated effusion with air-fluid levels concerning for pneumonia. The patient was admitted to the hospital and had thoracotomy with decortication by CT surgery today. Patient was then transferred to the ICU. The patient remains intubated. She is not responding at this time. She does not appear in acute distress. Past Med Surg Social Fam HX - Past Medical History Medical history: diabetes, thyroid disease, other (Polycystic ovary disease.) Psychiatric history: anxiety, depression - Past Surgical History Surgical History: no surgical history - Social History Smoking Status: Never smoker Smokeless Tobacco Status: No Alcohol use: occasionally Drug use: none - Family History Maternal Hx Family Respiratory Disorders: Yes (Histoplasmosis recurrent in maternal aunt) Mother Hx Family Cardiac Disorders: Yes (HTN) Medications and Allergies Ascorbate Calcium [Vitamin C] 500 mg PO DAILY 09/19/16 [History] Cyanocobalamin (Vitamin B-12) [Vitamin B12] 1,000 mcg PO DAILY 09/19/16 [History ] Ibuprofen [Motrin] 600 mg PO Q6HR PRN 09/19/16 [History] Levofloxacin [Levaquin] 750 mg PO DAILY 09/19/16 [History] Levothyroxine [Synthroid] 50 mcg PO DAILY 09/19/16 [History] Metformin [Glucophage] 2,000 mg PO DAILY 09/19/16 [History] Norgestimate-Ethinyl Estradiol [Sprintec 28 Day Tablet] 1 tab PO DAILY 09/19/16 [History] Allergies No Known Allergies Allergy (Verified 09/19/16 17:52) ROS unobtainable: due to endotracheal tube All Systems: A 10-system review of systems was performed and is negative for pertinent findings except as documented above in the HPI. Physical Examination General appearance: no acute distress, comatose ENT: oropharynx moist Effort: normal Auscultation: bilateral: rhonchi Cardiovascular: other (Regular rhythm, tachycardia) Gastrointestinal: hypoactive bowel sounds, soft, non-tender, non-distended Extremities: no cyanosis, no edema, no clubbing unable to assess due to mental status Results - Laboratory Findings CBC and BMP: 09/21/16 04:11 09/21/16 04:11 PT/INR, D-dimer PT 16.6 Seconds (9.4-12.1) H 09/21/16 04:11 Abnormal lab findings: Abnormal lab results WBC 23.8 K/mcL (4.3-11.1) H 09/21/16 04:11 RBC 3.68 M/mcL (3.82-4.97) L 09/21/16 04:11 Hgb 10.5 g/dL (11.5-15.4) L 09/21/16 04:11 Hct 33.1 % (35.3-44.9) L 09/21/16 04:11 RDW 14.8 % (11.5-14.5) H 09/21/16 04:11 Neutrophils # 19.1 K/mcL (1.6-8.9) H 09/21/16 04:11 Monocytes # 1.7 K/mcL (0.0-1.3) H 09/21/16 04:11 Toxic Granulation Present (Not Present) A 09/19/16 20:05 PT 16.6 Seconds (9.4-12.1) H 09/21/16 04:11 Creatinine 1.98 mg/dL (0.57-1.11) H D 09/21/16 04:11 Est GFR ( Amer) 39 (> 60) L 09/21/16 04:11 Est GFR (Non-Af Amer) 32 (> 60) L 09/21/16 04:11 BUN/Creatinine Ratio 5 (6-26) L 09/21/16 04:11 Glucose 100 mg/dL (70-99) H 09/21/16 04:11 POC Glucose 162 (58-89) H 09/20/16 00:24 Calcium 8.3 mg/dL (8.6-10.8) L 09/21/16 04:11 - Clinical Findings Intake & Output: Intake & Output 09/20/16 09/21/16 09/21/16 23:59 07:59 15:59 Intake Total 1500 / 1500 1100 / 1100 100 / 100 Output Total 1150 / 1150 2300 / 2300 Balance 1500 / 1500 -50 / -50 -2200 / -2200 Weight 108.2 kg Consult Discharge Plan - Plan Instructions: Chest Tubes (DC), Chest Tubes (GEN), Thoracotomy (DC), Lung Lobectomy (DC) Referrals: Kathy Interiano, QUALITY ASSURANCE NURSE [Primary Care Provider] - <Jeny Ramos - Last Filed: 09/21/16 16:40> All Systems: A 10-system review of systems was performed and is negative for pertinent findings except as documented above in the HPI. Physical Examination Vital Signs: Vital Signs, Last 4 Hours Pulse Resp BP Pulse Ox 09/21/16 15:20 18 97 09/21/16 14:20 83 18 98/55 97 09/21/16 13:00 96 18 104/63 96 09/21/16 12:45 102 16 114/54 96 09/21/16 12:30 110 18 127/76 95 09/21/16 12:15 108 21 120/59 95 09/21/16 12:00 109 18 131/62 95 Ventilator Settings Ventilator Settings: Ventilator Settings, Last 8 Hours Ventilator Mode CPAP Ventilator Mode A/C Ventilator Mode A/C Ventilator Tidal Volume 500 Setting Ventilator Tidal Volume 500 Setting Ventilator Tidal Volume 500 Setting Ventilator Respiratory Rate 12 Setting Ventilator Respiratory Rate 12 Setting Ventilator Respiratory Rate 12 Setting Actual Respiratory Rate 15 Actual Respiratory Rate 17 Positive End Expiratory 5 Pressure Positive End Expiratory 5 Pressure Positive End Expiratory 5 Pressure Peak Inspiratory Airway 14 Pressure Peak Inspiratory Airway 33 Pressure Results - Laboratory Findings CBC and BMP: 09/21/16 12:15 09/21/16 11:40 ABG ABG pH 7.42 pH Units (7.32-7.45) 09/21/16 12:15 ABG pCO2 37 mmHg (35-45) 09/21/16 12:15 ABG pO2 151 mmHg (85-104) H 09/21/16 12:15 ABG O2 Saturation 99 % (95-98) H 09/21/16 12:15 PT/INR, D-dimer PT 16.6 Seconds (9.4-12.1) H 09/21/16 04:11 Abnormal lab findings: Abnormal lab results WBC 30.0 K/mcL (4.3-11.1) H* 09/21/16 12:15 RBC 3.30 M/mcL (3.82-4.97) L 09/21/16 12:15 Hgb 9.3 g/dL (11.5-15.4) L 09/21/16 12:15 Hct 28.0 % (35.3-44.9) L 09/21/16 12:15 RDW 14.6 % (11.5-14.5) H 09/21/16 12:15 Band Neutrophils % 6.0 % (0-4) H 09/21/16 12:15 Metamyelocytes % 1.0 % (0) H 09/21/16 12:15 Myelocytes % 1.0 % (0) H 09/21/16 12:15 Neutrophils # 27.6 K/mcL (1.6-8.9) H 09/21/16 12:15 Toxic Granulation Present (Not Present) A 09/19/16 20:05 PT 16.6 Seconds (9.4-12.1) H 09/21/16 04:11 ABG pO2 151 mmHg (85-104) H 09/21/16 12:15 ABG O2 Saturation 99 % (95-98) H 09/21/16 12:15 Creatinine 2.35 mg/dL (0.57-1.11) H 09/21/16 11:40 Est GFR ( Amer) 32 (> 60) L 09/21/16 11:40 Est GFR (Non-Af Amer) 26 (> 60) L 09/21/16 11:40 Glucose 106 mg/dL (70-99) H 09/21/16 11:40 POC Glucose 102 (58-89) H 09/21/16 11:39 Calcium 7.9 mg/dL (8.6-10.8) L 09/21/16 11:40 Vancomycin Trough 22.5 mcg/mL (10-20) H* 09/21/16 11:40 - Microbiology Findings Microbiology Findings: Microbiology, Last 48 Hours 09/21/16 08:30 Body Fluid Culture - Preliminary Pleural Fluid - Clinical Findings Intake & Output: Intake & Output 09/20/16 09/21/16 09/21/16 23:59 07:59 15:59 Intake Total 1500 / 1500 1100 / 1100 233 / 233 Output Total 1150 / 1150 2400 / 2400 Balance 1500 / 1500 -50 / -50 -2167 / -2167 Weight 108.2 kg 109.6 kg - Attending Attestation I examined this patient and my medical decision-making was reviewed with the BOTTLE DEALER/PA/Advanced Practice Nurse/Resident Physician. I agree with the documented findings, disposition and treatment plan as described except to the extent set forth below. Patient seen and examine with resident and reviewed labs and images Patient has pain from side of the side of the chest tube. Advised her to use IS and agree with the treatment for now. I suspect borderline hypotension is from inflammatory reaction post operatively and severe sepsis. Will check lactic acid level. She is on appropriate antibiotics for now. Discussed with family at bedside. IVF bolus fluid for hypotension. If she doesn't respond to the fluid, she will need vasopressors. I'm hoping with fluid her RAVINDER will get better. Thank you for the consult.
[2016-09-21] MEDS ORDERED: Dexmedetomidine HCl 400 MCG/100 ML MLS IVC SCH (12:00)
[2016-09-21] MEDS: *HR* Heparin 5,000 UNIT/ML VIAL SQ SCH ×3 (12:16→22:50)
[2016-09-21 12:26] LABS: ABG Base Excess -0.3 mEq/L (-2.0 to 3.0); ABG Oxygen Saturation 99 % (95-98); ABG PCO2 37 mmHg (35-45); ABG PH 7.42 pH Units (7.32-7.45); ABG PO2 151 mmHg (85-104); ABG TCO2 25.1 mEq/L (20-26); Mean Corpuscular Volume 84.8 fL (83.0-100.0); Red Cell Distribution Width 14.6 % (11.5-14.5)
[2016-09-21 12:27] LABS: Blood Gas FiO2 50 %; Hemoglobin 9.3 g/dL (11.5-15.4); Mean Corpuscular HGB Conc 33.2 g/dL (31.6-35.5); Mean Corpuscular Hemoglobin 28.2 pg (28.0-33.3); Mean Platelet Volume 10.3 fL (9.4-12.4); Platelet Count 335 K/mcL (140-400)
[2016-09-21] MEDS: Ketorolac 15 MG/ML VIAL IVP SCH ×2 (12:28→15:03)
[2016-09-21] MEDS ORDERED: Aminoglycoside Consult 1 EACH MC ONE (12:29)
[2016-09-21 12:52] LABS: Lymphocytes # 1.2 K/mcL (0.6-4.6); Monocytes # 0.6 K/mcL (0.0-1.3); Neutrophils # 27.6 K/mcL (1.6-8.9); Platelet Estimate Normal (Normal)
[2016-09-21 13:10] LABS: Calcium 7.9 mg/dL (8.6-10.8); Potassium 3.8 mEq/L (3.5-4.5)
[2016-09-21] MEDS: *HR* HYDROmorphone 20 MG/20 ML PCA IVC PRN (17:43)
[2016-09-21] MEDS: 0.9 % Sodium Chloride 1,000 ML IV SCH (18:00)
[2016-09-21 20:12] LABS: Calcium 7.8 mg/dL (8.6-10.8); Phosphorous 6.7 mg/dL (2.3-4.7); Potassium 4.2 mEq/L (3.5-4.5)
[2016-09-21 20:18] LABS: Albumin 1.3 g/dL (3.5-5.0)
[2016-09-21] MEDS: Terconazole Vag CRM 20 GM TUBE VG SCH (22:50)
[2016-09-22] MEDS: Ipratropium Neb 0.5 MG NEBULIZER IH SCH ×7 (00:01→23:28)
[2016-09-22] MEDS: Ketorolac 15 MG/ML VIAL IVP SCH ×3 (00:18→13:41)
[2016-09-22] MEDS: 0.9 % Sodium Chloride 1,000 ML IV SCH ×3 (02:15→18:31)
[2016-09-22 03:53] LABS: Hematocrit 25.4 % (35.3-44.9); Hemoglobin 8.4 g/dL (11.5-15.4); Immature Granulocytes % 3.8 % (0-4); Mean Corpuscular HGB Conc 33.1 g/dL (31.6-35.5)
[2016-09-22 03:54] LABS: Basophils # 0.1 K/mcL (0.0-0.2); Basophils % 0.2 %; Lymphocytes % 6.2 %; Mean Corpuscular Hemoglobin 28.8 pg (28.0-33.3); Mean Platelet Volume 10.3 fL (9.4-12.4); Monocytes % 3.2 %; Neutrophils # 28.1 K/mcL (1.6-8.9); Platelet Count 314 K/mcL (140-400); Red Blood Count 2.92 M/mcL (3.82-4.97); Red Cell Distribution Width 14.8 % (11.5-14.5); Segmented Neutrophils % 86.6 %
[2016-09-22 04:05] LABS: Calcium 7.6 mg/dL (8.6-10.8); Potassium 4.2 mEq/L (3.5-4.5)
[2016-09-22 04:10] LABS: Large Platelets Present (Not Present); Platelet Estimate Normal (Normal); Reactive Lymphocytes Present (Not Present)
[2016-09-22 04:36] LABS: ABG Oxygen Saturation 96 % (95-98); ABG PCO2 38 mmHg (35-45); ABG PH 7.37 pH Units (7.32-7.45); ABG PO2 85 mmHg (85-104); ABG TCO2 23.2 mEq/L (20-26); Blood Gas FiO2 28 %
[2016-09-22] MEDS: *HR* Heparin 5,000 UNIT/ML VIAL SQ SCH ×3 (06:12→21:41)
[2016-09-22] MEDS: Piperacillin/Tazobactam 3.375 GM in D5% in Water (Mini-Bag+) 100 ML IVPB SCH ×3 (06:12→21:40)
--- NOTE | 2016-09-22 08:51 | Cardiothoracic Progress Note ---
Date of Encounter: 09/22/16 Time of Encounter: 08:49 - Assessment and plan (1) Empyema of lung Current Visit: Yes Status: Acute The assessment and plan as outlined above was discussed with the patient and/or family members who expressed understanding and agreement. All questions were answered. The patient's creatinine is stable. We will remove the Lao. We will mobilize her today. If she does well, we will transfer her to the floor tomorrow. - Subjective Interval history: The patient has no complaints. She is starting to take a diet. Vital Signs, Last 4 Hours Pulse Resp BP Pulse Ox 09/22/16 07:37 18 98 09/22/16 06:00 95 20 100/61 94 L 09/22/16 05:00 90 20 97/62 94 L Oxgyen Flow Rate Oxygen Flow Rate (LPM) 2 Clinical Data, last 8 Hours Output, Chest Tube Drainage 16 Amount [Left Lateral Chest #2] Output, Chest Tube Drainage 18 Amount [Left Lateral Chest #1] Weight 09/20/16 09/21/16 09/22/16 23:59 23:59 23:59 Weight 107.048 kg 109.6 kg Lungs are clear to percussion and auscultation. Heart is in a normal sinus rhythm. Her incision is healing well without signs of infection. Her chest tubes have minimal drainage and no air leak. The chest tube drainage is serosanguineous. - Labs 09/22/16 03:40 09/22/16 03:40 Lab Results, Last 24 hours 09/21/16 09/21/16 09/21/16 11:40 12:15 19:45 WBC 30.0 H* Hgb 9.3 L Hct 28.0 L Plt Count 335 Sodium 137 135 L Potassium 3.8 4.2 Chloride 106 106 Carbon Dioxide 21 21 BUN 13 17 Creatinine 2.35 H 2.52 H Glucose 106 H 111 H Calcium 7.9 L 7.8 L 09/22/16 09/22/16 03:40 03:40 WBC 32.4 H* Hgb 8.4 L Hct 25.4 L Plt Count 314 Sodium 136 Potassium 4.2 Chloride 108 Carbon Dioxide 20 BUN 19 Creatinine 2.50 H Glucose 104 H Calcium 7.6 L - VTE Documentation of Mechanical Device: Intermittent pneumatic compression device Consult Discharge Plan - Plan Instructions: Chest Tubes (DC), Chest Tubes (GEN), Thoracotomy (DC), Lung Lobectomy (DC) Referrals: Kathy Interiano, DIE SINKING MACHINE OPERATOR [Primary Care Provider] -
[2016-09-22] MEDS ORDERED: Vancomycin 1 EACH in EMPTY BAG 1 EACH IVPB SCH (09:00)
[2016-09-22 13:58] LABS: Basophils % 0.3 %; Hemoglobin 8.1 g/dL (11.5-15.4); Lymphocytes % 7.7 %
[2016-09-22 13:59] LABS: Basophils # 0.1 K/mcL (0.0-0.2); Hematocrit 24.6 % (35.3-44.9); Immature Granulocytes % 4.3 % (0-4); Lymphocytes # 2.6 K/mcL (0.6-4.6); Mean Corpuscular HGB Conc 32.9 g/dL (31.6-35.5); Mean Corpuscular Hemoglobin 28.7 pg (28.0-33.3); Mean Corpuscular Volume 87.2 fL (83.0-100.0); Mean Platelet Volume 10.4 fL (9.4-12.4); Monocytes # 1.1 K/mcL (0.0-1.3); Monocytes % 3.2 %; Neutrophils # 28.8 K/mcL (1.6-8.9); Platelet Count 352 K/mcL (140-400); Red Blood Count 2.82 M/mcL (3.82-4.97); Segmented Neutrophils % 84.5 %
--- NOTE | 2016-09-22 15:15 | Pulmonology Progress Note ---
<ChenchoJuni porras Yudith - Last Filed: 09/22/16 16:11> Date of Encounter: 09/22/16 Time of Encounter: 15:13 Assessment and Plan (1) Empyema of lung Current Visit: Yes Status: Acute Postoperative day one status post thoracotomy with decortication. Patient is doing well, chest tubes present and continue to drain. Likely improving. White count has stabilized. Cardiothoracic surgery is following. (2) Acute kidney injury Current Visit: Yes Status: Acute Most likely related to hypotension. Renal function is stabilized. Patient remains with good urine output. Continue to monitor labs, anticipate decrease in creatinine as the patient continues to hydrate. If the creatinine stays elevated we will further investigate. (3) Hypothyroidism Current Visit: Yes Status: Chronic Restart Synthroid at home dose. Asymptomatic. Qualifiers: Hypothyroidism type: acquired Qualified Code(s): E03.9 - Hypothyroidism, unspecified (4) DVT prophylaxis Current Visit: Yes Status: Acute Heparin 5000 units subcutaneous every 8 hours. Subjective Principal diagnosis: Empyema Interval history: Patient seen and examined bedside. She states she feels better. She continues to feel sore side of the chest. Otherwise she feels like her breathing is about normal. She denies any fever, chills. Objective PUL Vital signs: Last Vital Signs Temp 97.9 F 09/22/16 11:20 Pulse 103 09/22/16 13:30 Resp 20 09/22/16 13:30 BP 114/60 09/22/16 13:30 Pulse Ox 95 09/22/16 13:30 General appearance: no acute distress ENT: oropharynx moist Effort: normal Auscultation: left: diminished breath sounds, right: clear Cardiovascular: regular rate and rhythm, other (2 chest tubes noted in the left lateral chest draining serosanguineous fluid.) Gastrointestinal: normoactive bowel sounds, soft, non-tender, non-distended Extremities: no cyanosis, no edema, no clubbing normal mental status, non-focal exam Results - Laboratory Findings CBC and BMP: 09/22/16 13:50 09/22/16 03:40 ABG ABG pH 7.37 pH Units (7.32-7.45) 09/22/16 04:25 ABG pCO2 38 mmHg (35-45) 09/22/16 04:25 ABG pO2 85 mmHg (85-104) 09/22/16 04:25 ABG O2 Saturation 96 % (95-98) 09/22/16 04:25 PT/INR, D-dimer PT 16.6 Seconds (9.4-12.1) H 09/21/16 04:11 Abnormal lab findings: Abnormal lab results WBC 34.1 K/mcL (4.3-11.1) H* 09/22/16 13:50 RBC 2.82 M/mcL (3.82-4.97) L 09/22/16 13:50 Hgb 8.1 g/dL (11.5-15.4) L 09/22/16 13:50 Hct 24.6 % (35.3-44.9) L 09/22/16 13:50 RDW 15.0 % (11.5-14.5) H 09/22/16 13:50 Band Neutrophils % 6.0 % (0-4) H 09/21/16 12:15 Metamyelocytes % 1.0 % (0) H 09/21/16 12:15 Myelocytes % 1.0 % (0) H 09/21/16 12:15 Neutrophils # 28.1 K/mcL (1.6-8.9) H 09/22/16 03:40 Reactive Lymphocytes Present (Not Present) A 09/22/16 03:40 Toxic Granulation Present (Not Present) A 09/19/16 20:05 Large Platelets Present (Not Present) A 09/22/16 03:40 PT 16.6 Seconds (9.4-12.1) H 09/21/16 04:11 ABG Base Excess -3.0 mEq/L (-2.0 to 3.0) L 09/22/16 04:25 Creatinine 2.50 mg/dL (0.57-1.11) H 09/22/16 03:40 Est GFR ( Amer) 30 (> 60) L 09/22/16 03:40 Est GFR (Non-Af Amer) 25 (> 60) L 09/22/16 03:40 Glucose 104 mg/dL (70-99) H 09/22/16 03:40 POC Glucose 106 (58-89) H 09/22/16 00:03 Calcium 7.6 mg/dL (8.6-10.8) L 09/22/16 03:40 Phosphorus 6.7 mg/dL (2.3-4.7) H 09/21/16 19:45 Albumin 1.3 g/dL (3.5-5.0) L 09/21/16 19:45 Vancomycin Trough 22.5 mcg/mL (10-20) H* 09/21/16 11:40 - Microbiology Findings Microbiology Findings: Microbiology, Last 48 Hours 09/21/16 08:30 Acid Fast Stain - Final Lung - Left 09/21/16 08:30 Body Fluid Culture - Preliminary Pleural Fluid - Clinical Findings Intake & Output: Intake & Output 09/21/16 09/22/16 09/22/16 23:59 07:59 15:59 Intake Total 1615 / 1615 1100 / 1100 1340 / 1340 Output Total 306 / 306 502 / 502 500 / 500 Balance 1309 / 1309 598 / 598 840 / 840 - VTE Documentation of Mechanical Device: Intermittent pneumatic compression device Consult Discharge Plan - Plan Instructions: Chest Tubes (DC), Chest Tubes (GEN), Thoracotomy (DC), Lung Lobectomy (DC) Referrals: Kathy Interiano, SOLUTION DESIGNER [Primary Care Provider] - <Jeny Ramos - Last Filed: 09/22/16 21:04> Objective PUL Vital signs: Last Vital Signs Temp 98.3 F 09/22/16 20:00 Pulse 105 09/22/16 20:00 Resp 16 09/22/16 20:04 BP 102/59 09/22/16 20:00 Pulse Ox 95 09/22/16 20:04 Results - Laboratory Findings CBC and BMP: 09/22/16 13:50 09/22/16 15:07 ABG ABG pH 7.37 pH Units (7.32-7.45) 09/22/16 04:25 ABG pCO2 38 mmHg (35-45) 09/22/16 04:25 ABG pO2 85 mmHg (85-104) 09/22/16 04:25 ABG O2 Saturation 96 % (95-98) 09/22/16 04:25 PT/INR, D-dimer PT 16.6 Seconds (9.4-12.1) H 09/21/16 04:11 Abnormal lab findings: Abnormal lab results WBC 34.1 K/mcL (4.3-11.1) H* 09/22/16 13:50 RBC 2.82 M/mcL (3.82-4.97) L 09/22/16 13:50 Hgb 8.1 g/dL (11.5-15.4) L 09/22/16 13:50 Hct 24.6 % (35.3-44.9) L 09/22/16 13:50 RDW 15.0 % (11.5-14.5) H 09/22/16 13:50 Immature Gran % 4.3 % (0-4) H 09/22/16 13:50 Band Neutrophils % 6.0 % (0-4) H 09/21/16 12:15 Metamyelocytes % 1.0 % (0) H 09/21/16 12:15 Myelocytes % 1.0 % (0) H 09/21/16 12:15 Neutrophils # 28.8 K/mcL (1.6-8.9) H 09/22/16 13:50 Reactive Lymphocytes Present (Not Present) A 09/22/16 03:40 Toxic Granulation Present (Not Present) A 09/22/16 13:50 Large Platelets Present (Not Present) A 09/22/16 03:40 PT 16.6 Seconds (9.4-12.1) H 09/21/16 04:11 ABG Base Excess -3.0 mEq/L (-2.0 to 3.0) L 09/22/16 04:25 Sodium 134 mEq/L (136-145) L 09/22/16 15:07 BUN 22 mg/dL (7-20) H 09/22/16 15:07 Creatinine 2.41 mg/dL (0.57-1.11) H 09/22/16 15:07 Est GFR ( Amer) 31 (> 60) L 09/22/16 15:07 Est GFR (Non-Af Amer) 26 (> 60) L 09/22/16 15:07 Glucose 107 mg/dL (70-99) H 09/22/16 15:07 POC Glucose 106 (58-89) H 09/22/16 00:03 Calcium 7.7 mg/dL (8.6-10.8) L 09/22/16 15:07 Phosphorus 5.7 mg/dL (2.3-4.7) H 09/22/16 15:07 Albumin 1.1 g/dL (3.5-5.0) L 09/22/16 15:07 Vancomycin Trough 22.5 mcg/mL (10-20) H* 09/21/16 11:40 - Microbiology Findings Microbiology Findings: Microbiology, Last 48 Hours 09/21/16 08:30 Acid Fast Stain - Final Lung - Left 09/21/16 08:30 Body Fluid Culture - Preliminary Pleural Fluid - Clinical Findings Intake & Output: Intake & Output 09/22/16 09/22/16 09/22/16 07:59 15:59 23:59 Intake Total 1100 / 1100 1580 / 1580 1340 / 1340 Output Total 502 / 502 790 / 790 349 / 349 Balance 598 / 598 790 / 790 991 / 991 - Attending Attestation I examined this patient and my medical decision-making was reviewed with the UTILIZATION ENGINEER/PA/Advanced Practice Nurse/Resident Physician. I agree with the documented findings, disposition and treatment plan as described except to the extent set forth below. Patient seen and examined. Labs, radiology, chart personally reviewed. Agree with resident's history and physical, assessment, plan with following comments: DESOLDERER: Patient follows commands, Pulmonary: Acceptable oxygenation and ventilation and she is feeling better Cardiovascular: stable GI: Nutrition per dietary and GI prophylaxis per routine Heme: DVT prophylaxis per routine ID: Continue antibiotics and plan to de-escalation Renal; urine out put and renal funtion reviewed. Monitor renal function, if necessary will consult nephrology. Endorcine: blood glucose is monitored Lines: all lines checked and no evidence of infections Skin: skin care to prevent pressure ulcers per nursing routine care
[2016-09-22 16:44] LABS: Calcium 7.7 mg/dL (8.6-10.8); Phosphorous 5.7 mg/dL (2.3-4.7); Potassium 4.3 mEq/L (3.5-4.5)
[2016-09-22 16:47] LABS: Albumin 1.1 g/dL (3.5-5.0)
[2016-09-22] MEDS: *HR* HYDROmorphone 20 MG/20 ML PCA IVC PRN (19:00)
[2016-09-22 19:34] LABS: Toxic Granulation Present (Not Present)
[2016-09-22] MEDS: Terconazole Vag CRM 20 GM TUBE VG SCH (21:37)
[2016-09-22] MEDS: Acetaminophen 325 MG TABLET PO PRN (23:50)
[2016-09-23] MEDS: 0.9 % Sodium Chloride 1,000 ML IV SCH (02:40)
[2016-09-23] MEDS: Ipratropium Neb 0.5 MG NEBULIZER IH SCH ×6 (04:15→23:51)
[2016-09-23 04:24] LABS: Hematocrit 22.6 % (35.3-44.9); Hemoglobin 7.4 g/dL (11.5-15.4); Mean Corpuscular HGB Conc 32.7 g/dL (31.6-35.5); Mean Corpuscular Hemoglobin 28.5 pg (28.0-33.3); Mean Corpuscular Volume 86.9 fL (83.0-100.0); Mean Platelet Volume 10.3 fL (9.4-12.4); Platelet Count 365 K/mcL (140-400)
[2016-09-23 04:30] LABS: Calcium 7.6 mg/dL (8.6-10.8); Potassium 4.2 mEq/L (3.5-4.5)
[2016-09-23 05:24] LABS: Lymphocytes # 4.4 K/mcL (0.6-4.6); Neutrophils # 18.5 K/mcL (1.6-8.9); Platelet Estimate Normal (Normal); Reactive Lymphocytes Present (Not Present); Toxic Granulation Present (Not Present)
[2016-09-23] MEDS: Piperacillin/Tazobactam 3.375 GM in D5% in Water (Mini-Bag+) 100 ML IVPB SCH ×3 (06:36→21:13)
[2016-09-23] MEDS: *HR* Heparin 5,000 UNIT/ML VIAL SQ SCH ×3 (06:36→21:12)
[2016-09-23] MEDS ORDERED: *HR* OxyCODONE/APAP 5/325 TABLET PO PRN (07:29)
--- NOTE | 2016-09-23 07:38 | Cardiothoracic Progress Note ---
Date of Encounter: 09/23/16 Time of Encounter: 07:37 - Assessment and plan (1) Empyema of lung Current Visit: Yes Status: Acute We will transfer the patient to the floor. We will order by mouth pain medication so the patient can sleep through the night. - Subjective Interval history: The patient has mild postoperative pain. Vital Signs, Last 4 Hours Temp Pulse Resp BP Pulse Ox 09/23/16 07:13 108 18 100/77 97 09/23/16 06:00 108 18 99/61 97 09/23/16 05:00 103 18 109/54 97 09/23/16 04:22 98.5 F 09/23/16 04:16 18 96 09/23/16 04:00 98.5 F 104 22 115/57 96 Oxgyen Flow Rate Oxygen Flow Rate (LPM) 2 Clinical Data, last 8 Hours Output, Chest Tube Drainage 0 Amount [Left Lateral Chest #2] Output, Chest Tube Drainage 10 Amount [Left Lateral Chest #2] Output, Chest Tube Drainage 16 Amount [Left Lateral Chest #1] Output, Chest Tube Drainage 0 Amount [Left Lateral Chest #1] Weight 09/21/16 09/22/16 09/23/16 23:59 23:59 23:59 Weight 109.6 kg 117.48 kg Lungs are clear to percussion and auscultation. Heart is in a normal sinus rhythm. Chest tube drainage is minimal. There is no air leak. The incision is healing well without signs of infection. - Labs 09/23/16 03:55 09/23/16 03:55 Lab Results, Last 24 hours 09/22/16 09/22/16 09/23/16 13:50 15:07 03:55 WBC 34.1 H* 24.3 H Hgb 8.1 L 7.4 L Hct 24.6 L 22.6 L Plt Count 352 365 Sodium 134 L Potassium 4.3 Chloride 106 Carbon Dioxide 21 BUN 22 H Creatinine 2.41 H Glucose 107 H Calcium 7.7 L 09/23/16 03:55 WBC Hgb Hct Plt Count Sodium 135 L Potassium 4.2 Chloride 108 Carbon Dioxide 19 BUN 22 H Creatinine 2.36 H Glucose 86 Calcium 7.6 L - VTE Documentation of Mechanical Device: Intermittent pneumatic compression device Consult Discharge Plan - Plan Instructions: Chest Tubes (DC), Chest Tubes (GEN), Thoracotomy (DC), Lung Lobectomy (DC) Referrals: Kathy Interiano, SAILMAKER [Primary Care Provider] -
[2016-09-23] MEDS ORDERED: Dextrose Gel 15 GM PO PRN ×2 (08:44)
[2016-09-23] MEDS ORDERED: D5% in Water 1,000 ML IV PRN (08:44)
[2016-09-23] MEDS ORDERED: *HR* Dextrose 50 % in Water (Syg) 50 ML SYRINGE IVP PRN (08:44)
[2016-09-23] MEDS ORDERED: *HR* Promethazine 25 MG/ML VIAL IVP PRN (08:47)
[2016-09-23] MEDS ORDERED: *HR* Morphine 2 MG/ML SYRINGE IVP PRN ×2 (08:47)
[2016-09-23] MEDS ORDERED: Naloxone 0.4 MG/ML INJ IVP PRN (08:47)
[2016-09-23] MEDS ORDERED: Ondansetron 4 MG/2 ML VIAL IVP PRN (08:47)
[2016-09-23] MEDS ORDERED: *HR* Metformin 500 MG TABLET PO SCH (09:00)
--- NOTE | 2016-09-23 10:03 | Anesthesia Evaluation Post Op ---
Date of Encounter: 09/23/16 Time of Encounter: 10:02 - Vital Signs Vital Signs: Selected Entries 09/23/16 07:33 09/23/16 07:45 Temperature 101.7 F H Pulse Rate 108 Blood Pressure 100/77 O2 Sat by Pulse Oximetry 97 - Lungs Lungs: Clear Ascult./Percussion - Airway Airway: Non-obstructed - Cardiovascular Regular Rate - Mental Status Mental Status: Alert & Oriented, Answers Appropriately - Pain Pain Scale: 2 Pain Scale used: Numeric (1 - 10) - Nausea Vomiting Nausea Vomiting: Not Present - Hydration Hydration: Tolerates oral liquids, Able to void - Discharge PostOp Status: Transfer Patient to floor (Patient looks great. Denies any issues. No apparent anesthesia side effects)
[2016-09-23] MEDS ORDERED: Insulin LISPRO 300 UNITS/3 ML VIAL SQ SCH ×2 (11:30→21:00)
[2016-09-23] MEDS: NON-FORMULARY MEDICATION 1 EACH EACH (Norgestimate-Ethinyl Estradiol [Sprintec 28 Day Tabl PO SCH (13:04)
[2016-09-23] MEDS ORDERED: 0.9 % Sodium Chloride 1,000 ML ONE (15:07)
--- NOTE | 2016-09-23 17:05 | Pulmonology Progress Note ---
Date of Encounter: 09/23/16 Time of Encounter: 07:20 Assessment and Plan (1) Acute kidney injury Current Visit: Yes Status: Acute There is slight improvement in renal function. Avoid any nephrotoxin. Continue monitoring. (2) Empyema of lung Current Visit: Yes Status: Acute Continue current antibiotics and chest tube per cardiothoracic. Will follow up PRN, please call for any questions. Antibiotics for 14 days. Subjective Principal diagnosis: Empyema Interval history: Patient feeling better and was transferred to [facility]. Objective PUL Vital signs: Last Vital Signs Temp 98.4 F 09/23/16 14:31 Pulse 137 09/23/16 15:00 Resp 20 09/23/16 14:31 BP 116/79 09/23/16 14:31 Pulse Ox 94 L 09/23/16 14:31 General appearance: no acute distress Eyes: nonicteric Neck: supple Auscultation: left: diminished breath sounds (Chest tube in place), right: clear Cardiovascular: regular rate and rhythm Gastrointestinal: normoactive bowel sounds, soft Extremities: no cyanosis normal mental status, non-focal exam mood appropriate Results - Laboratory Findings CBC and BMP: 09/23/16 03:55 09/23/16 03:55 ABG ABG pH 7.37 pH Units (7.32-7.45) 09/22/16 04:25 ABG pCO2 38 mmHg (35-45) 09/22/16 04:25 ABG pO2 85 mmHg (85-104) 09/22/16 04:25 ABG O2 Saturation 96 % (95-98) 09/22/16 04:25 PT/INR, D-dimer PT 16.6 Seconds (9.4-12.1) H 09/21/16 04:11 Abnormal lab findings: Abnormal lab results WBC 24.3 K/mcL (4.3-11.1) H 09/23/16 03:55 RBC 2.60 M/mcL (3.82-4.97) L 09/23/16 03:55 Hgb 7.4 g/dL (11.5-15.4) L 09/23/16 03:55 Hct 22.6 % (35.3-44.9) L 09/23/16 03:55 RDW 15.0 % (11.5-14.5) H 09/23/16 03:55 Immature Gran % 4.3 % (0-4) H 09/22/16 13:50 Metamyelocytes % 1.0 % (0) H 09/21/16 12:15 Myelocytes % 2.0 % (0) H 09/23/16 03:55 Neutrophils # 18.5 K/mcL (1.6-8.9) H 09/23/16 03:55 Reactive Lymphocytes Present (Not Present) A 09/23/16 03:55 Toxic Granulation Present (Not Present) A 09/23/16 03:55 Large Platelets Present (Not Present) A 09/22/16 03:40 PT 16.6 Seconds (9.4-12.1) H 09/21/16 04:11 ABG Base Excess -3.0 mEq/L (-2.0 to 3.0) L 09/22/16 04:25 Sodium 135 mEq/L (136-145) L 09/23/16 03:55 BUN 22 mg/dL (7-20) H 09/23/16 03:55 Creatinine 2.36 mg/dL (0.57-1.11) H 09/23/16 03:55 Est GFR ( Amer) 32 (> 60) L 09/23/16 03:55 Est GFR (Non-Af Amer) 26 (> 60) L 09/23/16 03:55 Calcium 7.6 mg/dL (8.6-10.8) L 09/23/16 03:55 Phosphorus 5.7 mg/dL (2.3-4.7) H 09/22/16 15:07 Albumin 1.1 g/dL (3.5-5.0) L 09/22/16 15:07 Vancomycin Trough 22.5 mcg/mL (10-20) H* 09/21/16 11:40 - Microbiology Findings Microbiology Findings: Microbiology, Last 48 Hours 09/21/16 08:30 Body Fluid Culture - Preliminary Pleural Fluid 09/21/16 08:30 Acid Fast Stain - Final Lung - Left - Clinical Findings Intake & Output: Intake & Output 09/23/16 09/23/16 09/23/16 07:59 15:59 23:59 Intake Total 1150 / 1150 1000 / 1000 Output Total 216 / 216 1905 / 1905 Balance 934 / 934 -905 / -905 Weight 117.48 kg - VTE Documentation of Mechanical Device: Intermittent pneumatic compression device Consult Discharge Plan - Plan Instructions: Chest Tubes (DC), Chest Tubes (GEN), Thoracotomy (DC), Lung Lobectomy (DC) Referrals: Kathy Interiano, BORING MACHINE FEEDER [Primary Care Provider] -
[2016-09-23] MEDS: *HR* OxyCODONE/APAP 5/325 TABLET PO PRN ×2 (18:03→23:37)
[2016-09-23] MEDS ORDERED: Terconazole Vag CRM 20 GM TUBE VG SCH (21:00)
[2016-09-23] MEDS: *HR* HYDROmorphone 20 MG/20 ML PCA IVC PRN (22:40)
[2016-09-24] MEDS: Ipratropium Neb 0.5 MG NEBULIZER IH SCH ×6 (03:43→23:39)
[2016-09-24] MEDS: *HR* Heparin 5,000 UNIT/ML VIAL SQ SCH ×3 (05:19→22:32)
[2016-09-24] MEDS: *HR* OxyCODONE/APAP 5/325 TABLET PO PRN ×3 (05:20→22:31)
[2016-09-24] MEDS: Piperacillin/Tazobactam 3.375 GM in D5% in Water (Mini-Bag+) 100 ML IVPB SCH ×3 (05:20→22:32)
[2016-09-24] MEDS: NON-FORMULARY MEDICATION 1 EACH EACH (Norgestimate-Ethinyl Estradiol [Sprintec 28 Day Tabl PO SCH (08:46)
--- NOTE | 2016-09-24 09:15 | Internal Med Progress Note ---
Date of Encounter: 09/24/16 Time of Encounter: 09:10 - Assessment and plan (1) Sepsis Current Visit: Yes Status: Acute Assessment and plan: Sepsis secondary to left lung empyema Chest tube in place Fever has resolved. Tachycardic. Persistent Leukocytosis Was on vancomycin for 2 days. Cardiac thoracic surgery on board [facility] day 7 Qualifiers: Sepsis type: Streptococcus group A Qualified Code(s): A40.0 - Sepsis due to streptococcus, group A (2) Empyema of lung Current Visit: Yes Status: Acute Assessment and plan: Chest CTA 09/19/16 19:46 IMPRESSION: Findings are compatible with empyema at the left lung base, with a large loculated component which extends along the lateral aspect of the left thoracic cavity and causes extensive compressive atelectasis. D/ / 09/19/2016 21:24:33 Robert Yang MD / robert Interpreting Provider: Robert Yang MD (3) Acute kidney injury Current Visit: Yes Status: Acute Assessment and plan: Probably secondary to ATN/infection Vancomycin was discontinued and metformin was held No IV fluids as the patient is edematous and she is producing more urine at the moment. Consider nephrology consult if not improving (4) Hypothyroidism Current Visit: Yes Status: Chronic Assessment and plan: TSH normal Qualifiers: Hypothyroidism type: acquired Qualified Code(s): E03.9 - Hypothyroidism, unspecified (5) Polycystic ovarian disease Current Visit: Yes Status: Chronic Assessment and plan: High risk due to empyema - Time Spent With Patient Greater than 35 minutes - Subjective Interval history: Complaining of severe pain in the left chest, denies any abdominal pain, shortness of breath, no fevers or chills. No diarrhea or dysuria. Has not noticed any dark stools. - Constitutional Vitals: Temp Pulse Resp BP Pulse Ox 97.8 F 110 18 126/77 97 09/24/16 07:24 09/24/16 08:47 09/24/16 08:05 09/24/16 07:24 09/24/16 08:47 General appearance: Present: A&O X 3, pleasant, no acute distress, answers questions appropriately - Head Head exam: Present: atraumatic, normocephalic - Eye Eye exam: Present: PERRL, conjuntiva pink, sclera anicteric Pupils: Present: PERRL - Neck Neck exam general surgery: Present: supple, trachea midline. Absent: lymphadenopathy - Respiratory Respiratory exam: Present: decreased breath sounds (Very diminished breath sounds on the left lung field, chest tube in place), CTAB. Absent: accessory muscle use, rales, rhonchi, wheezes - Cardiovascular Cardiovascular exam: Present: RRR, +S1, +S2. Absent: diastolic murmur, gallop, rubs, systolic murmur - GI/Abdominal GI/Abdominal exam: Present: normal bowel sounds, soft, no peritoneal signs. Absent: distended, tenderness - Extremities Exam Extremities exam: Present: pedal edema, warm, radial pulses palpable and symetrical. Absent: calf tenderness, cyanotic Additional comments: +1 nonpitting edema in both lower extremities - Neurological Exam Neurological exam: Present: CN II-XII intact, oriented X3, no focal deficits. Absent: pronater drift, facial droop, speech deficit - Skin Skin exam: Present: dry, intact Internal Medicine: Result - Labs CBC & Chem 7: 09/23/16 03:55 09/23/16 03:55 - ABG Interpretation ABG results: ABG ABG pH 7.37 pH Units (7.32-7.45) 09/22/16 04:25 ABG pCO2 38 mmHg (35-45) 09/22/16 04:25 ABG pO2 85 mmHg (85-104) 09/22/16 04:25 ABG O2 Saturation 96 % (95-98) 09/22/16 04:25 PT/INR, D-dimer PT 16.6 Seconds (9.4-12.1) H 09/21/16 04:11 - VTE Documentation of Mechanical Device: Intermittent pneumatic compression device Consult Discharge Plan - Plan Instructions: Chest Tubes (DC), Chest Tubes (GEN), Thoracotomy (DC), Lung Lobectomy (DC) Referrals: Kathy Interiano, PHLEBOTOMY INSTRUCTOR [Primary Care Provider] -
[2016-09-24] MEDS ORDERED: MOM Conc 10 ML UD.LIQ PO PRN (10:10)
--- NOTE | 2016-09-24 10:10 | Cardiothoracic Progress Note ---
Date of Encounter: 09/24/16 Time of Encounter: 10:08 - Assessment and plan (1) Empyema of lung Current Visit: Yes Status: Acute I will order milk of magnesia for the patient's constipation. We will leave the chest tubes in until Monday. - Subjective Interval history: The patient complains of mild constipation. Pain is well controlled. Vital Signs, Last 4 Hours Temp Pulse Resp BP Pulse Ox 09/24/16 08:47 110 97 09/24/16 08:05 18 97 09/24/16 07:24 97.8 F 111 19 126/77 97 Oxgyen Flow Rate Oxygen Flow Rate (LPM) 4 Clinical Data, last 8 Hours Output, Chest Tube Drainage 20 Amount [Left Lateral Chest #2] Output, Chest Tube Drainage 30 Amount [Left Lateral Chest #2] Output, Chest Tube Drainage 20 Amount [Left Lateral Chest #1] Output, Chest Tube Drainage 30 Amount [Left Lateral Chest #1] Output, Urine Amount 650 Weight 09/22/16 09/23/16 09/24/16 23:59 23:59 23:59 Weight 117.48 kg 115.8 kg Lungs are clear to percussion and auscultation. Heart is in a normal sinus rhythm. Chest tube drainage is minimal and there is no air leak. - Labs 09/23/16 03:55 09/23/16 03:55 - VTE Documentation of Mechanical Device: Intermittent pneumatic compression device Consult Discharge Plan - Plan Instructions: Chest Tubes (DC), Chest Tubes (GEN), Thoracotomy (DC), Lung Lobectomy (DC) Referrals: Kathy Interiano, REHAB ASSISTANT [Primary Care Provider] -
[2016-09-24 11:04] LABS: Hematocrit 24.1 % (35.3-44.9); Hemoglobin 7.7 g/dL (11.5-15.4); Mean Corpuscular Volume 87.6 fL (83.0-100.0); Mean Platelet Volume 9.7 fL (9.4-12.4); Platelet Count 510 K/mcL (140-400); Red Blood Count 2.75 M/mcL (3.82-4.97); Red Cell Distribution Width 14.6 % (11.5-14.5)
[2016-09-24 11:18] LABS: Calcium 8.1 mg/dL (8.6-10.8); Potassium 4.1 mEq/L (3.5-4.5)
[2016-09-24] MEDS: Nystatin Cream 15 GM TUBE TP SCH ×2 (15:29→22:32)
[2016-09-24] MEDS: Acetaminophen 325 MG TABLET PO PRN (19:53)
[2016-09-25] MEDS: Ipratropium Neb 0.5 MG NEBULIZER IH SCH ×5 (03:41→20:47)
[2016-09-25 04:29] LABS: Hematocrit 21.9 % (35.3-44.9); Hemoglobin 7.2 g/dL (11.5-15.4); Mean Corpuscular HGB Conc 32.9 g/dL (31.6-35.5); Mean Corpuscular Hemoglobin 28.9 pg (28.0-33.3); Mean Platelet Volume 9.9 fL (9.4-12.4); Platelet Count 490 K/mcL (140-400); Red Blood Count 2.49 M/mcL (3.82-4.97); Red Cell Distribution Width 14.6 % (11.5-14.5)
[2016-09-25 04:43] LABS: Potassium 3.8 mEq/L (3.5-4.5)
[2016-09-25 04:57] LABS: Lymphocytes # 2.8 K/mcL (0.6-4.6); Monocytes # 0.2 K/mcL (0.0-1.3); Neutrophils # 19.7 K/mcL (1.6-8.9); Reactive Lymphocytes Present (Not Present)
[2016-09-25] MEDS: *HR* Heparin 5,000 UNIT/ML VIAL SQ SCH ×3 (06:38→21:56)
[2016-09-25] MEDS: Piperacillin/Tazobactam 3.375 GM in D5% in Water (Mini-Bag+) 100 ML IVPB SCH ×3 (06:39→21:56)
[2016-09-25] MEDS ORDERED: 0.9 % Sodium Chloride 1,000 ML ONE (06:43)
[2016-09-25] MEDS: *HR* OxyCODONE/APAP 5/325 TABLET PO PRN ×2 (06:45→18:48)
[2016-09-25] MEDS: Acetaminophen 325 MG TABLET PO PRN (08:50)
[2016-09-25] MEDS: Nystatin Cream 15 GM TUBE TP SCH ×4 (08:50→22:02)
[2016-09-25] MEDS: NON-FORMULARY MEDICATION 1 EACH EACH (Norgestimate-Ethinyl Estradiol [Sprintec 28 Day Tabl PO SCH (08:50)
--- NOTE | 2016-09-25 08:52 | Cardiothoracic Progress Note ---
Date of Encounter: 09/25/16 Time of Encounter: 08:50 - Assessment and plan (1) Empyema of lung Current Visit: Yes Status: Acute I discontinued the chest tube suction. She is receiving Tylenol for her low- grade fever. Creatinine and white blood cell count are slowly coming down. - Subjective Interval history: The patient has continued postoperative pain. She has a low-grade fever of 100.4 this a.m. Vital Signs, Last 4 Hours Temp Pulse Resp BP Pulse Ox 09/25/16 08:15 16 98 09/25/16 07:35 100.2 F H 120 24 128/88 95 09/25/16 05:55 116 97 Oxgyen Flow Rate Oxygen Flow Rate (LPM) 2 Clinical Data, last 8 Hours Output, Chest Tube Drainage 10 Amount [Left Lateral Chest #2] Output, Chest Tube Drainage 20 Amount [Left Lateral Chest #1] Output, Urine Amount 900 Output, Urine Amount 800 Weight 09/23/16 09/24/16 09/25/16 23:59 23:59 23:59 Weight 117.48 kg 115.8 kg 117.027 kg Lungs are clear to percussion and auscultation. Heart is in a normal sinus rhythm. Her incision is healing well without signs of infection. Chest tube drainage is minimal and there is no air leak. - Labs 09/25/16 04:20 09/25/16 04:20 Lab Results, Last 24 hours 09/24/16 09/24/16 09/25/16 10:48 10:48 04:20 WBC 24.0 H 23.2 H Hgb 7.7 L 7.2 L Hct 24.1 L 21.9 L Plt Count 510 H 490 H Sodium 136 Potassium 4.1 Chloride 106 Carbon Dioxide 23 BUN 19 Creatinine 2.38 H Glucose 88 Calcium 8.1 L 09/25/16 04:20 WBC Hgb Hct Plt Count Sodium 137 Potassium 3.8 Chloride 106 Carbon Dioxide 22 BUN 17 Creatinine 2.25 H Glucose 95 Calcium 8.0 L - VTE Documentation of Mechanical Device: Intermittent pneumatic compression device Consult Discharge Plan - Plan Instructions: Chest Tubes (DC), Chest Tubes (GEN), Thoracotomy (DC), Lung Lobectomy (DC) Referrals: Kathy Interiano, HR MANAGER [Primary Care Provider] -
[2016-09-25] MEDS ORDERED: Fluconazole 100 MG TABLET PO ONE (09:57)
--- NOTE | 2016-09-25 10:01 | Internal Med Progress Note ---
Date of Encounter: 09/25/16 Time of Encounter: 09:59 - Assessment and plan (1) Sepsis Current Visit: Yes Status: Acute Assessment and plan: Sepsis secondary to left lung loculated empyema Chest tube in place Low-grade fevers. Tachycardic. Persistent Leukocytosis Was on vancomycin for 2 days. Cardiac thoracic surgery on board Zosyn day 8 Qualifiers: Sepsis type: Streptococcus group A Qualified Code(s): A40.0 - Sepsis due to streptococcus, group A (2) Empyema of lung Current Visit: Yes Status: Acute Assessment and plan: Chest CTA 09/19/16 19:46 IMPRESSION: Findings are compatible with empyema at the left lung base, with a large loculated component which extends along the lateral aspect of the left thoracic cavity and causes extensive compressive atelectasis. D/ / 09/19/2016 21:24:33 Robert Yang MD / robert Interpreting Provider: Robert Yang MD (3) Acute kidney injury Current Visit: Yes Status: Acute Assessment and plan: Probably secondary to ATN/infection, slowly improving Vancomycin was discontinued and metformin was held No IV fluids as the patient is edematous and she is producing more urine at the moment. Consider nephrology consult if worse (4) Hypothyroidism Current Visit: Yes Status: Chronic Assessment and plan: TSH normal Qualifiers: Hypothyroidism type: acquired Qualified Code(s): E03.9 - Hypothyroidism, unspecified (5) Polycystic ovarian disease Current Visit: Yes Status: Chronic Assessment and plan: High risk due to empyema (6) Nona infection of genital region Current Visit: Yes Status: Acute Assessment and plan: With possible skin involvement of the perineal area Start fluconazole, continue nystatin cream May continue lower dose due to renal function - Time Spent With Patient Greater than 35 minutes - Subjective Interval history: Patient is complaining of a burning sensation on her groin since 2016. Complaining of pain in the left chest, denies any abdominal pain, shortness of breath, no fevers or chills. No diarrhea or dysuria. Has not noticed any dark stools. - Constitutional Vitals: Temp Pulse Resp BP Pulse Ox 100.2 F H 120 16 128/88 98 09/25/16 07:35 09/25/16 09:01 09/25/16 08:15 09/25/16 07:35 09/25/16 08:15 General appearance: Present: A&O X 3, pleasant, no acute distress, answers questions appropriately - Head Head exam: Present: atraumatic, normocephalic - Eye Eye exam: Present: PERRL, conjuntiva pink, sclera anicteric Pupils: Present: PERRL - Neck Neck exam general surgery: Present: supple, trachea midline. Absent: lymphadenopathy - Respiratory Respiratory exam: Present: decreased breath sounds (Very diminished breath sounds on the left lung field, chest tube in place), CTAB. Absent: accessory muscle use, rales, rhonchi, wheezes - Cardiovascular Cardiovascular exam: Present: RRR, +S1, +S2. Absent: diastolic murmur, gallop, rubs, systolic murmur - GI/Abdominal GI/Abdominal exam: Present: normal bowel sounds, soft, no peritoneal signs. Absent: distended, tenderness - Additional comments: Vaginal area and perineal area is very irritated appearing to be fungal infection - Extremities Exam Extremities exam: Present: pedal edema, warm, radial pulses palpable and symetrical. Absent: calf tenderness, cyanotic Additional comments: +1 pitting edema in both lower extremities - Neurological Exam Neurological exam: Present: CN II-XII intact, oriented X3, no focal deficits. Absent: pronater drift, facial droop, speech deficit - Skin Skin exam: Present: dry, intact Internal Medicine: Result - Labs CBC & Chem 7: 09/25/16 04:20 09/25/16 04:20 Labs: Short CBC 09/24/16 09/25/16 Range/Units 10:48 04:20 WBC 24.0 H 23.2 H (4.3-11.1) K/mcL Hgb 7.7 L 7.2 L (11.5-15.4) g/dL Hct 24.1 L 21.9 L (35.3-44.9) % Plt Count 510 H 490 H (140-400) K/mcL Neutrophils # 19.7 H (1.6-8.9) K/mcL BMP 09/24/16 09/25/16 10:48 04:20 Sodium 136 137 Potassium 4.1 3.8 Chloride 106 106 Carbon Dioxide 23 22 BUN 19 17 Creatinine 2.38 H 2.25 H Glucose 88 95 Calcium 8.1 L 8.0 L - ABG Interpretation ABG results: ABG ABG pH 7.37 pH Units (7.32-7.45) 09/22/16 04:25 ABG pCO2 38 mmHg (35-45) 09/22/16 04:25 ABG pO2 85 mmHg (85-104) 09/22/16 04:25 ABG O2 Saturation 96 % (95-98) 09/22/16 04:25 PT/INR, D-dimer PT 16.6 Seconds (9.4-12.1) H 09/21/16 04:11 - Impressions Impressions Chest X-Ray 09/25/16 00:01 IMPRESSION: Stable chest following left thoracotomy. No pneumothorax. Continued left basilar opacification D/ / Yony Keating MD / Yony Keating MD Interpreting Provider: Yony Keating MD - VTE Documentation of Mechanical Device: Intermittent pneumatic compression device Consult Discharge Plan - Plan Instructions: Chest Tubes (DC), Chest Tubes (GEN), Thoracotomy (DC), Lung Lobectomy (DC) Referrals: Kathy Interiano, CAMPUS RECRUITING COORDINATOR [Primary Care Provider] -
--- NOTE | 2016-09-25 10:19 | Pulmonology Progress Note ---
<Juni Morris - Last Filed: 09/25/16 10:17> Date of Encounter: 09/25/16 Time of Encounter: 10:18 Assessment and Plan (1) Empyema of lung Current Visit: Yes Status: Acute Postoperative day 4 status post thoracotomy with decortication. Chest tubes present and continue to drain, possible removal tomorrow per CT surgery. White count has decreased from immediate postop period but stabilized. Patient received 2 days of vancomycin postop and is now on Zosyn only. Patient had low- grade fever. Given the patient's fever, persistent leukocytosis broadening of antibiotic coverage may be warranted. Cardiothoracic surgery is following. (2) Acute kidney injury Current Visit: Yes Status: Acute Most likely related to hypotension however RAVINDER related to antibiotics, in particular vancomycin is a possibility. Creatinine remains elevated but is improving, patient remains with good urine output. Continue to monitor, patient may warrant a nephrology consult. (3) Hypothyroidism Current Visit: Yes Status: Chronic Restart Synthroid at home dose. Asymptomatic. Qualifiers: Hypothyroidism type: acquired Qualified Code(s): E03.9 - Hypothyroidism, unspecified Subjective Principal diagnosis: Empyema Interval history: Patient seen and examined bedside. She states she continues to feel better. She continues to feel sore side of the chest but this is slowly improving. Otherwise she feels like her breathing is about normal. She reports fever overnight. She states she is using her incentive spirometer frequently. She states her appetite is decreased and has not eaten a lot, however she is drinking good amount of fluids. She does report mild abdominal tenderness. Objective PUL Vital signs: Last Vital Signs Temp 100.2 F H 09/25/16 07:35 Pulse 120 09/25/16 09:01 Resp 16 09/25/16 08:15 BP 128/88 09/25/16 07:35 Pulse Ox 98 09/25/16 08:15 General appearance: no acute distress ENT: oropharynx moist Effort: normal Auscultation: left: clear, right: diminished breath sounds Cardiovascular: other (Regular rhythm, tachycardia) Gastrointestinal: hypoactive bowel sounds, soft, tender (Mildly, diffusely), non -distended Extremities: no cyanosis, no clubbing, edema (Trace) normal mental status, non-focal exam mood appropriate, affect normal Results - Laboratory Findings CBC and BMP: 09/25/16 04:20 09/25/16 04:20 ABG ABG pH 7.37 pH Units (7.32-7.45) 09/22/16 04:25 ABG pCO2 38 mmHg (35-45) 09/22/16 04:25 ABG pO2 85 mmHg (85-104) 09/22/16 04:25 ABG O2 Saturation 96 % (95-98) 09/22/16 04:25 PT/INR, D-dimer PT 16.6 Seconds (9.4-12.1) H 09/21/16 04:11 Abnormal lab findings: Abnormal lab results WBC 23.2 K/mcL (4.3-11.1) H 09/25/16 04:20 RBC 2.49 M/mcL (3.82-4.97) L 09/25/16 04:20 Hgb 7.2 g/dL (11.5-15.4) L 09/25/16 04:20 Hct 21.9 % (35.3-44.9) L 09/25/16 04:20 RDW 14.6 % (11.5-14.5) H 09/25/16 04:20 Plt Count 490 K/mcL (140-400) H 09/25/16 04:20 Immature Gran % 4.3 % (0-4) H 09/22/16 13:50 Metamyelocytes % 1.0 % (0) H 09/21/16 12:15 Myelocytes % 2.0 % (0) H 09/25/16 04:20 Neutrophils # 19.7 K/mcL (1.6-8.9) H 09/25/16 04:20 Reactive Lymphocytes Present (Not Present) A 09/25/16 04:20 Toxic Granulation Present (Not Present) A 09/23/16 03:55 Platelet Estimate Slight increase (Normal) H 09/25/16 04:20 Large Platelets Present (Not Present) A 09/22/16 03:40 PT 16.6 Seconds (9.4-12.1) H 09/21/16 04:11 ABG Base Excess -3.0 mEq/L (-2.0 to 3.0) L 09/22/16 04:25 Creatinine 2.25 mg/dL (0.57-1.11) H 09/25/16 04:20 Est GFR ( Amer) 34 (> 60) L 09/25/16 04:20 Est GFR (Non-Af Amer) 28 (> 60) L 09/25/16 04:20 POC Glucose 102 (58-89) H 09/24/16 20:12 Calcium 8.0 mg/dL (8.6-10.8) L 09/25/16 04:20 Phosphorus 5.7 mg/dL (2.3-4.7) H 09/22/16 15:07 Albumin 1.1 g/dL (3.5-5.0) L 09/22/16 15:07 Vancomycin Trough 22.5 mcg/mL (10-20) H* 09/21/16 11:40 - Microbiology Findings Microbiology Findings: Microbiology, Last 48 Hours 09/21/16 08:30 Body Fluid Culture - Final Pleural Fluid - Clinical Findings Intake & Output: Intake & Output 09/24/16 09/25/16 09/25/16 23:59 07:59 15:59 Intake Total 100 / 100 100 / 100 120 / 120 Output Total 2325 / 2325 1730 / 1730 1400 / 1400 Balance -2225 / -2225 -1630 / -1630 -1280 / -1280 Weight 117.027 kg - VTE Documentation of Mechanical Device: Intermittent pneumatic compression device Consult Discharge Plan - Plan Instructions: Chest Tubes (DC), Chest Tubes (GEN), Thoracotomy (DC), Lung Lobectomy (DC) Referrals: Kathy Interiano, SPIRITS MODEL [Primary Care Provider] - <Jeny Ramos - Last Filed: 09/25/16 11:50> Assessment and Plan (1) Acute kidney injury Current Visit: Yes Status: Acute (2) Empyema of lung Current Visit: Yes Status: Acute Objective PUL Vital signs: Last Vital Signs Temp 98.2 F 09/25/16 11:17 Pulse 104 09/25/16 11:17 Resp 20 09/25/16 11:17 BP 117/75 09/25/16 11:17 Pulse Ox 96 09/25/16 11:17 Results - Laboratory Findings CBC and BMP: 09/25/16 04:20 09/25/16 04:20 ABG ABG pH 7.37 pH Units (7.32-7.45) 09/22/16 04:25 ABG pCO2 38 mmHg (35-45) 09/22/16 04:25 ABG pO2 85 mmHg (85-104) 09/22/16 04:25 ABG O2 Saturation 96 % (95-98) 09/22/16 04:25 PT/INR, D-dimer PT 16.6 Seconds (9.4-12.1) H 09/21/16 04:11 Abnormal lab findings: Abnormal lab results WBC 23.2 K/mcL (4.3-11.1) H 09/25/16 04:20 RBC 2.49 M/mcL (3.82-4.97) L 09/25/16 04:20 Hgb 7.2 g/dL (11.5-15.4) L 09/25/16 04:20 Hct 21.9 % (35.3-44.9) L 09/25/16 04:20 RDW 14.6 % (11.5-14.5) H 09/25/16 04:20 Plt Count 490 K/mcL (140-400) H 09/25/16 04:20 Immature Gran % 4.3 % (0-4) H 09/22/16 13:50 Metamyelocytes % 1.0 % (0) H 09/21/16 12:15 Myelocytes % 2.0 % (0) H 09/25/16 04:20 Neutrophils # 19.7 K/mcL (1.6-8.9) H 09/25/16 04:20 Reactive Lymphocytes Present (Not Present) A 09/25/16 04:20 Toxic Granulation Present (Not Present) A 09/23/16 03:55 Platelet Estimate Slight increase (Normal) H 09/25/16 04:20 Large Platelets Present (Not Present) A 09/22/16 03:40 PT 16.6 Seconds (9.4-12.1) H 09/21/16 04:11 ABG Base Excess -3.0 mEq/L (-2.0 to 3.0) L 09/22/16 04:25 Creatinine 2.25 mg/dL (0.57-1.11) H 09/25/16 04:20 Est GFR ( Amer) 34 (> 60) L 09/25/16 04:20 Est GFR (Non-Af Amer) 28 (> 60) L 09/25/16 04:20 POC Glucose 102 (58-89) H 09/24/16 20:12 Calcium 8.0 mg/dL (8.6-10.8) L 09/25/16 04:20 Phosphorus 5.7 mg/dL (2.3-4.7) H 09/22/16 15:07 Albumin 1.1 g/dL (3.5-5.0) L 09/22/16 15:07 Vancomycin Trough 22.5 mcg/mL (10-20) H* 09/21/16 11:40 - Microbiology Findings Microbiology Findings: Microbiology, Last 48 Hours 09/21/16 08:30 Body Fluid Culture - Final Pleural Fluid - Clinical Findings Intake & Output: Intake & Output 09/24/16 09/25/16 09/25/16 23:59 07:59 15:59 Intake Total 100 / 100 100 / 100 120 / 120 Output Total 2325 / 2325 1730 / 1730 1400 / 1400 Balance -2225 / -2225 -1630 / -1630 -1280 / -1280 Weight 117.027 kg - Attending Attestation I examined this patient and my medical decision-making was reviewed with the OIL SPREADER OPERATOR/PA/Advanced Practice Nurse/Resident Physician. I agree with the documented findings, disposition and treatment plan as described except to the extent set forth below. Patient seen and examined and reviewed labs and images Patient still have chest tube in the left side and diminished breath sound in the left side AOX 3 RRR I believe it is expected to have some elevation in WBC, however if no improvement in 1-2 days will recommend to broaden her antibiotics and repeat CT chest. RAVINDER slightly improvement, continue monitoring Discussed with Dr. Duque.
[2016-09-25] MEDS: *HR* HYDROmorphone 20 MG/20 ML PCA IVC PRN (19:47)
[2016-09-25] MEDS: Famotidine 20 MG TABLET PO SCH (21:55)
[2016-09-26] MEDS: Ipratropium Neb 0.5 MG NEBULIZER IH SCH ×7 (00:41→23:02)
[2016-09-26] MEDS: Acetaminophen 325 MG TABLET PO PRN ×2 (01:00→14:17)
[2016-09-26] MEDS: *HR* OxyCODONE/APAP 5/325 TABLET PO PRN ×4 (01:06→22:12)
[2016-09-26] MEDS: Nystatin Cream 15 GM TUBE TP SCH ×4 (04:04→21:26)
[2016-09-26 04:23] LABS: Hematocrit 20.6 % (35.3-44.9); Hemoglobin 6.8 g/dL (11.5-15.4); Mean Corpuscular Hemoglobin 28.6 pg (28.0-33.3); Mean Corpuscular Volume 86.6 fL (83.0-100.0); Mean Platelet Volume 9.8 fL (9.4-12.4); Platelet Count 497 K/mcL (140-400); Red Blood Count 2.38 M/mcL (3.82-4.97); Red Cell Distribution Width 14.5 % (11.5-14.5)
[2016-09-26 04:43] LABS: Potassium 3.7 mEq/L (3.5-4.5)
[2016-09-26 04:51] LABS: Lymphocytes # 0.4 K/mcL (0.6-4.6); Monocytes # 2.4 K/mcL (0.0-1.3); Neutrophils # 16.9 K/mcL (1.6-8.9)
[2016-09-26 04:52] LABS: Large Platelets Present (Not Present); Platelet Estimate Increased (Normal); Reactive Lymphocytes Present (Not Present)
[2016-09-26] MEDS: *HR* Heparin 5,000 UNIT/ML VIAL SQ SCH ×3 (06:35→21:18)
[2016-09-26] MEDS: Piperacillin/Tazobactam 3.375 GM in D5% in Water (Mini-Bag+) 100 ML IVPB SCH ×3 (06:37→22:12)
[2016-09-26] MEDS: NON-FORMULARY MEDICATION 1 EACH EACH (Norgestimate-Ethinyl Estradiol [Sprintec 28 Day Tabl PO SCH (08:09)
[2016-09-26] MEDS: Famotidine 20 MG TABLET PO SCH ×2 (08:09→21:18)
--- NOTE | 2016-09-26 09:11 | Internal Med Progress Note ---
Date of Encounter: 09/26/16 Time of Encounter: 09:07 - Assessment and plan (1) Sepsis Current Visit: Yes Status: Acute Assessment and plan: Sepsis secondary to left lung loculated empyema, s/p Left posteriolateral thoracotomy and Decortication [address] RUn a fever o 102. Tachycardic. Persistent Leukocytosis Was on vancomycin for 2 days. Cardiac thoracic surgery on board Zosyn day 9, may add clindamycin if still running fevers Qualifiers: Sepsis type: Streptococcus group A Qualified Code(s): A40.0 - Sepsis due to streptococcus, group A (2) Empyema of lung Current Visit: Yes Status: Acute Assessment and plan: Chest CTA 09/19/16 19:46 IMPRESSION: Findings are compatible with empyema at the left lung base, with a large loculated component which extends along the lateral aspect of the left thoracic cavity and causes extensive compressive atelectasis. D/ / 09/19/2016 21:24:33 Robert Yang MD / robert Interpreting Provider: Robert Yang MD (3) Acute kidney injury Current Visit: Yes Status: Acute Assessment and plan: Probably secondary to ATN/infection, slowly improving Vancomycin was discontinued and metformin was held No IV fluids as the patient is edematous and she is producing more urine at the moment. Consider nephrology consult if worse (4) Hypothyroidism Current Visit: Yes Status: Chronic Assessment and plan: TSH normal Qualifiers: Hypothyroidism type: acquired Qualified Code(s): E03.9 - Hypothyroidism, unspecified (5) Polycystic ovarian disease Current Visit: Yes Status: Chronic Assessment and plan: High risk due to empyema (6) Nona infection of genital region Current Visit: Yes Status: Acute Assessment and plan: With possible skin involvement of the perineal area Give another dose of fluconazole ( day 2 ) and reevaluate tomorrow, continue nystatin cream May continue lower dose due to renal function (7) Acute blood loss as cause of postoperative anemia Current Visit: Yes Status: Acute Assessment and plan: give 1 unit of RBCs monitor cbc - Time Spent With Patient Greater than 35 minutes - Subjective Interval history: Patient is complaining of a burning sensation on her groin since September 24 2016 , 5/10 in intensity, improving since yesterday. Complaining of pain in the left chest, denies any abdominal pain, shortness of breath, no fevers or chills. No diarrhea or dysuria. Has not noticed any dark stools. - Constitutional Vitals: Temp Pulse Resp BP Pulse Ox 98.2 F 96 16 124/85 96 09/26/16 06:00 09/26/16 06:00 09/26/16 08:46 09/26/16 06:00 09/26/16 08:46 General appearance: Present: A&O X 3, pleasant, no acute distress, answers questions appropriately - Head Head exam: Present: atraumatic, normocephalic - Eye Eye exam: Present: PERRL, conjuntiva pink, sclera anicteric Pupils: Present: PERRL - Neck Neck exam general surgery: Present: supple, trachea midline. Absent: lymphadenopathy - Respiratory Respiratory exam: Present: CTAB. Absent: accessory muscle use, rales, rhonchi, wheezes Additional comments: Very diminished breath sounds on the left lung field, [address] - Cardiovascular Cardiovascular exam: Present: RRR, +S1, +S2. Absent: diastolic murmur, gallop, rubs, systolic murmur - GI/Abdominal GI/Abdominal exam: Present: normal bowel sounds, soft, no peritoneal signs. Absent: distended, tenderness - Additional comments: Vaginal area and perineal area is less irritated appearing to be fungal infection, no abscesses - Extremities Exam Extremities exam: Present: warm, radial pulses palpable and symetrical. Absent : calf tenderness, cyanotic, pedal edema - Neurological Exam Neurological exam: Present: CN II-XII intact, oriented X3, no focal deficits. Absent: pronater drift, facial droop, speech deficit - Skin Skin exam: Present: dry, intact Internal Medicine: Result - Labs CBC & Chem 7: 09/26/16 04:00 09/26/16 04:00 Labs: Short CBC 09/26/16 Range/Units 04:00 WBC 20.1 H (4.3-11.1) K/mcL Hgb 6.8 L (11.5-15.4) g/dL Hct 20.6 L (35.3-44.9) % Plt Count 497 H (140-400) K/mcL Neutrophils # 16.9 H (1.6-8.9) K/mcL BMP 09/26/16 04:00 Sodium 136 Potassium 3.7 Chloride 105 Carbon Dioxide 24 BUN 13 Creatinine 1.88 H Glucose 101 H Calcium 8.0 L - ABG Interpretation ABG results: ABG ABG pH 7.37 pH Units (7.32-7.45) 09/22/16 04:25 ABG pCO2 38 mmHg (35-45) 09/22/16 04:25 ABG pO2 85 mmHg (85-104) 09/22/16 04:25 ABG O2 Saturation 96 % (95-98) 09/22/16 04:25 PT/INR, D-dimer PT 16.6 Seconds (9.4-12.1) H 09/21/16 04:11 - Impressions Impressions Chest X-Ray 09/26/16 00:01 IMPRESSION: Stable chest. D/ / Gabe Blackwell MD / Gabe Blackwell MD Interpreting Provider: Gabe Blackwell MD - VTE Documentation of Mechanical Device: Intermittent pneumatic compression device Consult Discharge Plan - Plan Instructions: Chest Tubes (DC), Chest Tubes (GEN), Thoracotomy (DC), Lung Lobectomy (DC) Referrals: Kathy Interiano, DIFFUSER OPERATOR [Primary Care Provider] -
[2016-09-26] MEDS ORDERED: Fluconazole 100 MG TABLET PO ONE (09:14)
--- NOTE | 2016-09-26 09:24 | Cardiothoracic Progress Note ---
Date of Encounter: 09/26/16 Time of Encounter: 09:22 - Assessment and plan (1) Empyema of lung Current Visit: Yes Status: Acute The patient will receive 1 unit of packed red blood cells for hemoglobin of less than 7. I will plan to discontinue her chest tubes tomorrow. Creatinine and white blood cell count continued to slowly improve. - Subjective Interval history: The patient has continued postoperative pain. She also complains of pain around her chest tubes. Vital Signs, Last 4 Hours Temp Pulse Resp BP Pulse Ox 09/26/16 08:46 16 96 09/26/16 06:00 98.2 F 96 16 124/85 99 Oxgyen Flow Rate Oxygen Flow Rate (LPM) 2 Clinical Data, last 8 Hours Output, Chest Tube Drainage 0 Amount [Left Lateral Chest #2] Weight 09/24/16 09/25/16 09/26/16 23:59 23:59 23:59 Weight 115.8 kg 117.027 kg 112.8 kg Lungs are clear to percussion and auscultation. Heart is in a normal sinus rhythm. Chest tubes have minimal drainage and no air leak. Chest x-ray off suction reveals no pneumothorax. The fungal rash in her groin area is improved. - Labs 09/26/16 04:00 09/26/16 04:00 Lab Results, Last 24 hours 09/26/16 09/26/16 04:00 04:00 WBC 20.1 H Hgb 6.8 L Hct 20.6 L Plt Count 497 H Sodium 136 Potassium 3.7 Chloride 105 Carbon Dioxide 24 BUN 13 Creatinine 1.88 H Glucose 101 H Calcium 8.0 L - VTE Documentation of Mechanical Device: Intermittent pneumatic compression device Consult Discharge Plan - Plan Instructions: Chest Tubes (DC), Chest Tubes (GEN), Thoracotomy (DC), Lung Lobectomy (DC) Referrals: Kathy Interiano, OUTSIDE SALES ADVERTISING EXECUTIVE [Primary Care Provider] -
--- NOTE | 2016-09-26 11:26 | Pulmonology Progress Note ---
Date of Encounter: 09/26/16 Time of Encounter: 11:25 Assessment and Plan (1) Empyema of lung Current Visit: Yes Status: Acute Clinically feel on right trajectory. WBC still elevated but trending down. Monitor fever curve would keep Chest tube in today but defer to CTS for mngt cont IV pip/tazo do not see clear reason to broaden coverage depending on next 24-48 hours with removal of chest tube could transition to PO (Augmentin) recommend at least two week course at discharge (2) Acute kidney injury Current Visit: Yes Status: Acute improving cont to encourage PO intake renally dose all meds (3) DVT prophylaxis Current Visit: Yes Status: Acute would cont Chemical DVT prophylaxis while in patient Subjective Principal diagnosis: Empyema Interval history: Feels a bit better today still with significant pain from chest tubes. had fever overnight Objective PUL Vital signs: Last Vital Signs Temp 98.2 F 09/26/16 06:00 Pulse 103 09/26/16 08:00 Resp 16 09/26/16 08:46 BP 124/85 09/26/16 06:00 Pulse Ox 96 09/26/16 08:46 General appearance: no acute distress Effort: normal Auscultation: bilateral: diminished breath sounds Cardiovascular: regular rate and rhythm Gastrointestinal: non-tender normal mental status, non-focal exam mood appropriate Results - Laboratory Findings CBC and BMP: 09/26/16 04:00 09/26/16 04:00 ABG ABG pH 7.37 pH Units (7.32-7.45) 09/22/16 04:25 ABG pCO2 38 mmHg (35-45) 09/22/16 04:25 ABG pO2 85 mmHg (85-104) 09/22/16 04:25 ABG O2 Saturation 96 % (95-98) 09/22/16 04:25 PT/INR, D-dimer PT 16.6 Seconds (9.4-12.1) H 09/21/16 04:11 Abnormal lab findings: Abnormal lab results WBC 20.1 K/mcL (4.3-11.1) H 09/26/16 04:00 RBC 2.38 M/mcL (3.82-4.97) L 09/26/16 04:00 Hgb 6.8 g/dL (11.5-15.4) L 09/26/16 04:00 Hct 20.6 % (35.3-44.9) L 09/26/16 04:00 Plt Count 497 K/mcL (140-400) H 09/26/16 04:00 Immature Gran % 4.3 % (0-4) H 09/22/16 13:50 Metamyelocytes % 2.0 % (0) H 09/26/16 04:00 Myelocytes % 2.0 % (0) H 09/25/16 04:20 Neutrophils # 16.9 K/mcL (1.6-8.9) H 09/26/16 04:00 Lymphocytes # 0.4 K/mcL (0.6-4.6) L 09/26/16 04:00 Monocytes # 2.4 K/mcL (0.0-1.3) H 09/26/16 04:00 Reactive Lymphocytes Present (Not Present) A 09/26/16 04:00 Toxic Granulation Present (Not Present) A 09/23/16 03:55 Platelet Estimate Increased (Normal) H 09/26/16 04:00 Large Platelets Present (Not Present) A 09/26/16 04:00 PT 16.6 Seconds (9.4-12.1) H 09/21/16 04:11 ABG Base Excess -3.0 mEq/L (-2.0 to 3.0) L 09/22/16 04:25 Creatinine 1.88 mg/dL (0.57-1.11) H 09/26/16 04:00 Est GFR ( Amer) 41 (> 60) L 09/26/16 04:00 Est GFR (Non-Af Amer) 34 (> 60) L 09/26/16 04:00 Glucose 101 mg/dL (70-99) H 09/26/16 04:00 POC Glucose 102 (58-89) H 09/24/16 20:12 Calcium 8.0 mg/dL (8.6-10.8) L 09/26/16 04:00 Phosphorus 5.7 mg/dL (2.3-4.7) H 09/22/16 15:07 Albumin 1.1 g/dL (3.5-5.0) L 09/22/16 15:07 Vancomycin Trough 22.5 mcg/mL (10-20) H* 09/21/16 11:40 - Microbiology Findings Microbiology Findings: Microbiology, Last 48 Hours 09/21/16 08:30 Anaerobic Culture - Final Pleural Fluid No anaerobes were recovered. - Diagnostic Findings Chest x-ray: report reviewed, image reviewed - Clinical Findings Intake & Output: Intake & Output 09/25/16 09/26/16 09/26/16 23:59 07:59 15:59 Intake Total 220 / 220 700 / 700 100 / 100 Output Total 1575 / 1575 900 / 900 900 / 900 Balance -1355 / -1355 -200 / -200 -800 / -800 Weight 112.8 kg - VTE Documentation of Mechanical Device: Intermittent pneumatic compression device Consult Discharge Plan - Plan Instructions: Chest Tubes (DC), Chest Tubes (GEN), Thoracotomy (DC), Lung Lobectomy (DC) Referrals: Kathy Interiano, SURGICAL MANAGER [Primary Care Provider] - (SENT WEB REQUEST ON 09-26-16 @ [id number])
[2016-09-26] MEDS ORDERED: 0.9 % Sodium Chloride 250 ML ONE (11:52)
[2016-09-26] MEDS: Clindamycin 600 MG/50 ML 600 MG/50 ML IV.SOLN IVPB SCH (16:34)
[2016-09-27] MEDS: Clindamycin 600 MG/50 ML 600 MG/50 ML IV.SOLN IVPB SCH ×3 (01:09→17:12)
[2016-09-27] MEDS: Nystatin Cream 15 GM TUBE TP SCH ×4 (03:32→21:38)
[2016-09-27] MEDS: *HR* OxyCODONE/APAP 5/325 TABLET PO PRN ×4 (03:32→20:42)
[2016-09-27] MEDS: Ipratropium Neb 0.5 MG NEBULIZER IH SCH ×5 (05:28→20:46)
[2016-09-27 05:53] LABS: Hematocrit 23.3 % (35.3-44.9); Hemoglobin 7.6 g/dL (11.5-15.4); Mean Corpuscular HGB Conc 32.6 g/dL (31.6-35.5); Mean Corpuscular Hemoglobin 28.3 pg (28.0-33.3); Mean Corpuscular Volume 86.6 fL (83.0-100.0); Mean Platelet Volume 9.9 fL (9.4-12.4); Platelet Count 576 K/mcL (140-400); Red Blood Count 2.69 M/mcL (3.82-4.97); Red Cell Distribution Width 14.5 % (11.5-14.5)
[2016-09-27 05:59] LABS: Calcium 8.4 mg/dL (8.6-10.8)
[2016-09-27] MEDS: *HR* Heparin 5,000 UNIT/ML VIAL SQ SCH ×3 (06:26→21:32)
[2016-09-27] MEDS: Piperacillin/Tazobactam 3.375 GM in D5% in Water (Mini-Bag+) 100 ML IVPB SCH ×3 (06:27→21:31)
--- NOTE | 2016-09-27 07:22 | Pulmonology Progress Note ---
Date of Encounter: 09/27/16 Time of Encounter: 07:22 Assessment and Plan (1) Empyema of lung Current Visit: Yes Status: Acute Clinically feel on right trajectory. WBC trending down. Monitor fever curve Agree with clindamycin and Zosyn for now would likely de-escalate to Augmentin by mouth after removal of chest tubes which was referred to cardiothoracic surgery to remove recommend at least two week course of antibiotics at discharge (2) Acute kidney injury Current Visit: Yes Status: Acute improving cont to encourage PO intake renally dose all meds (3) DVT prophylaxis Current Visit: Yes Status: Acute would cont Chemical DVT prophylaxis while in patient Subjective Principal diagnosis: Empyema Interval history: Feels a bit better today still with significant pain from chest tubes feels weak had fever overnight and was started on clindamycin Objective PUL Vital signs: Last Vital Signs Temp 98.1 F 09/27/16 07:20 Pulse 99 09/27/16 07:20 Resp 18 09/27/16 07:20 BP 131/90 09/27/16 07:20 Pulse Ox 93 L 09/27/16 07:20 General appearance: no acute distress, lethargic Neck: supple Auscultation: left: diminished breath sounds Cardiovascular: regular rate and rhythm normal mental status, non-focal exam Results - Laboratory Findings CBC and BMP: 09/27/16 05:28 09/27/16 05:28 ABG ABG pH 7.37 pH Units (7.32-7.45) 09/22/16 04:25 ABG pCO2 38 mmHg (35-45) 09/22/16 04:25 ABG pO2 85 mmHg (85-104) 09/22/16 04:25 ABG O2 Saturation 96 % (95-98) 09/22/16 04:25 PT/INR, D-dimer PT 16.6 Seconds (9.4-12.1) H 09/21/16 04:11 Abnormal lab findings: Abnormal lab results WBC 15.3 K/mcL (4.3-11.1) H 09/27/16 05:28 RBC 2.69 M/mcL (3.82-4.97) L 09/27/16 05:28 Hgb 7.6 g/dL (11.5-15.4) L 09/27/16 05:28 Hct 23.3 % (35.3-44.9) L 09/27/16 05:28 Plt Count 576 K/mcL (140-400) H 09/27/16 05:28 Immature Gran % 4.3 % (0-4) H 09/22/16 13:50 Metamyelocytes % 2.0 % (0) H 09/26/16 04:00 Myelocytes % 2.0 % (0) H 09/25/16 04:20 Neutrophils # 16.9 K/mcL (1.6-8.9) H 09/26/16 04:00 Lymphocytes # 0.4 K/mcL (0.6-4.6) L 09/26/16 04:00 Monocytes # 2.4 K/mcL (0.0-1.3) H 09/26/16 04:00 Reactive Lymphocytes Present (Not Present) A 09/26/16 04:00 Toxic Granulation Present (Not Present) A 09/23/16 03:55 Platelet Estimate Increased (Normal) H 09/26/16 04:00 Large Platelets Present (Not Present) A 09/26/16 04:00 PT 16.6 Seconds (9.4-12.1) H 09/21/16 04:11 ABG Base Excess -3.0 mEq/L (-2.0 to 3.0) L 09/22/16 04:25 Creatinine 1.68 mg/dL (0.57-1.11) H 09/27/16 05:28 Est GFR ( Amer) 47 (> 60) L 09/27/16 05:28 Est GFR (Non-Af Amer) 39 (> 60) L 09/27/16 05:28 POC Glucose 92 (58-89) H 09/26/16 21:48 Calcium 8.4 mg/dL (8.6-10.8) L 09/27/16 05:28 Phosphorus 5.7 mg/dL (2.3-4.7) H 09/22/16 15:07 Albumin 1.1 g/dL (3.5-5.0) L 09/22/16 15:07 Vancomycin Trough 22.5 mcg/mL (10-20) H* 09/21/16 11:40 - Microbiology Findings Microbiology Findings: Microbiology, Last 48 Hours 09/21/16 08:30 Anaerobic Culture - Final Pleural Fluid No anaerobes were recovered. - Clinical Findings Intake & Output: Intake & Output 09/26/16 09/26/16 09/27/16 15:59 23:59 07:59 Intake Total 110 / 110 1487 / 1487 650 / 650 Output Total 1700 / 1700 480 / 480 700 / 700 Balance -1590 / -1590 1007 / 1007 -50 / -50 Weight 113.1 kg - VTE Documentation of Mechanical Device: Intermittent pneumatic compression device Consult Discharge Plan - Plan Instructions: Chest Tubes (DC), Chest Tubes (GEN), Thoracotomy (DC), Lung Lobectomy (DC) Referrals: Kathy Interiano CNP [Primary Care Provider] - 10/04/16 11:00 am () Mindi Hurtado MD [Partnered Physician] - 10/20/16 1:20 pm
[2016-09-27] MEDS: Famotidine 20 MG TABLET PO SCH ×2 (08:53→20:41)
--- NOTE | 2016-09-27 09:16 | Cardiothoracic Progress Note ---
Date of Encounter: 09/27/16 Time of Encounter: 09:13 - Assessment and plan (1) Empyema of lung Current Visit: Yes Status: Acute We will check a stat portable chest x-ray. White blood cell count and creatinine are improved. Hemoglobin is increased above 7. Prior to discharge, we will switch the patient to by mouth antibiotics and by mouth pain medication. - Subjective Interval history: The patient has continued postoperative pain. She has been afebrile overnight. Vital Signs, Last 4 Hours Temp Pulse Resp BP Pulse Ox 09/27/16 08:01 16 96 09/27/16 07:20 98.1 F 99 18 131/90 93 L Oxgyen Flow Rate Oxygen Flow Rate (LPM) 2 Clinical Data, last 8 Hours Output, Urine Amount 700 Weight 09/25/16 09/26/16 09/27/16 23:59 23:59 23:59 Weight 117.027 kg 112.8 kg 113.1 kg Lungs are clear to percussion and auscultation. Heart is in a normal sinus rhythm. Her incision is healing well without signs of infection. Chest tubes had minimal drainage and no air leak. Chest x-ray done off suction reveals no pneumothorax. The chest tubes were removed. - Labs 09/27/16 05:28 09/27/16 05:28 Lab Results, Last 24 hours 09/27/16 09/27/16 05:28 05:28 WBC 15.3 H Hgb 7.6 L Hct 23.3 L Plt Count 576 H Sodium 139 Potassium 4.0 Chloride 105 Carbon Dioxide 25 BUN 12 Creatinine 1.68 H Glucose 88 Calcium 8.4 L - VTE Documentation of Mechanical Device: Intermittent pneumatic compression device Consult Discharge Plan - Plan Instructions: Chest Tubes (DC), Chest Tubes (GEN), Thoracotomy (DC), Lung Lobectomy (DC) Referrals: Kathy Interiano CNP [Primary Care Provider] - 10/04/16 11:00 am () Mindi Hurtado MD [Partnered Physician] - 10/20/16 1:20 pm
--- NOTE | 2016-09-27 10:02 | Internal Med Progress Note ---
Date of Encounter: 09/27/16 Time of Encounter: 10:00 - Assessment and plan (1) Acute blood loss as cause of postoperative anemia Current Visit: Yes Status: Acute Assessment and plan: s/p 1 unit of PRBCs. monitor cbc (2) Acute kidney injury Current Visit: Yes Status: Acute Assessment and plan: Probably secondary to sepsis / ATN. Treated with IV fluids with some improvement of renal function. Vancomycin was discontinued and metformin were held. Monitor renal function. Consider nephrology consult. (3) Nona infection of genital region Current Visit: Yes Status: Acute Assessment and plan: continue nystatin cream (4) DVT prophylaxis Current Visit: Yes Status: Acute (5) Empyema of lung Current Visit: Yes Status: Acute Assessment and plan: s/p decortication. Thoracic surgery and pulmonary team following the pt. Cultures / gram stain shows gram negative rods. Continue zosyn. (6) Leukocytosis Current Visit: Yes Status: Acute Assessment and plan: Likely due to empyema and sepsis. WBC count gradually improving Qualifiers: Leukocytosis type: unspecified Qualified Code(s): D72.829 - Elevated white blood cell count, unspecified (7) Sepsis Current Visit: Yes Status: Acute Assessment and plan: Sepsis secondary to left lung loculated empyema, s/p Left posteriolateral thoracotomy and Decortication. Fever and leucocytosis improving. Qualifiers: Sepsis type: sepsis due to unspecified organism Qualified Code(s): A41.9 - Sepsis, unspecified organism (8) Hypothyroidism Current Visit: Yes Status: Chronic Assessment and plan: Continue Synthroid Qualifiers: Hypothyroidism type: acquired Qualified Code(s): E03.9 - Hypothyroidism, unspecified (9) Obesity (BMI 30-39.9) Current Visit: No Status: Chronic Assessment and plan: Supportive care - Subjective Interval history: Pt is seen and examined at the bedside and chart reviewed. Pt reports feeling better than yesterday. Chest tube was removed this morning. Reports intermittent chest pain at the site of chest tube, which is improving. Denies nausea, vomiting, fever, chills today. Reports that she had a bowel movement yesterday. Patient's mother indicates that the bowel movement was watery. - Constitutional Vitals: Temp Pulse Resp BP Pulse Ox 98.1 F 99 16 131/90 96 09/27/16 07:20 09/27/16 07:20 09/27/16 08:01 09/27/16 07:20 09/27/16 08:01 General appearance: Present: A&O X 3, pleasant, no acute distress, answers questions appropriately Exam: General: Not in acute distress at the time of my evaluation Lungs: Left basilar crackles present Cardiac: Regular rate and rhythm. No significant murmurs Abdomen: Soft, non tender. Bowel sounds present Neurological: Alert and oriented. No gross localizing deficits Psych: Not agrressive or agitated Extremities: Bilateral leg edema present Skin: No generalized rash Internal Medicine: Result - Labs CBC & Chem 7: 09/27/16 05:28 09/27/16 05:28 Labs: Short CBC 09/27/16 Range/Units 05:28 WBC 15.3 H (4.3-11.1) K/mcL Hgb 7.6 L (11.5-15.4) g/dL Hct 23.3 L (35.3-44.9) % Plt Count 576 H (140-400) K/mcL BMP 09/27/16 05:28 Sodium 139 Potassium 4.0 Chloride 105 Carbon Dioxide 25 BUN 12 Creatinine 1.68 H Glucose 88 Calcium 8.4 L Microbiology 09/21/16 08:30 Pleural Fluid Anaerobic Culture - Final No anaerobes were recovered. 09/19/16 20:05 Peripheral Venipuncture Blood Culture - Final No growth. 09/21/16 08:30 Pleural Fluid Body Fluid Culture - Final 09/21/16 08:30 Lung - Left Acid Fast Stain - Final 09/19/16 20:25 Sputum Sputum Culture - Final - ABG Interpretation ABG results: ABG ABG pH 7.37 pH Units (7.32-7.45) 09/22/16 04:25 ABG pCO2 38 mmHg (35-45) 09/22/16 04:25 ABG pO2 85 mmHg (85-104) 09/22/16 04:25 ABG O2 Saturation 96 % (95-98) 09/22/16 04:25 PT/INR, D-dimer PT 16.6 Seconds (9.4-12.1) H 09/21/16 04:11 - Impressions Impressions Chest X-Ray 09/27/16 09:18 IMPRESSION: Persistent moderate airspace disease throughout the mid and lower left lung. No pneumothorax following 2 separate chest tubes having been removed. D/ / Judah Harding MD / Judah Harding MD Interpreting Provider: Judah Harding MD - VTE Documentation of Mechanical Device: Intermittent pneumatic compression device Consult Discharge Plan - Plan Instructions: Chest Tubes (DC), Chest Tubes (GEN), Thoracotomy (DC), Lung Lobectomy (DC) Referrals: Kathy Interiano CNP [Primary Care Provider] - 10/04/16 11:00 am () Mindi Hurtado MD [Partnered Physician] - 10/20/16 1:20 pm
[2016-09-27] MEDS: Lactobacillus 1 EACH CAP.SPRINK PO SCH ×2 (10:59→20:41)
[2016-09-27] MEDS: *HR* HYDROmorphone 20 MG/20 ML PCA IVC PRN (21:29)
[2016-09-27] MEDS ORDERED: 0.9 % Sodium Chloride 500 ML ONE (21:33)
[2016-09-28] MEDS: Ipratropium Neb 0.5 MG NEBULIZER IH SCH ×7 (00:04→23:03)
[2016-09-28] MEDS: *HR* OxyCODONE/APAP 5/325 TABLET PO PRN ×4 (04:25→19:39)
[2016-09-28] MEDS: Nystatin Cream 15 GM TUBE TP SCH ×4 (04:57→21:04)
[2016-09-28 05:17] LABS: Hematocrit 22.7 % (35.3-44.9); Hemoglobin 7.6 g/dL (11.5-15.4); Mean Corpuscular HGB Conc 33.5 g/dL (31.6-35.5); Mean Corpuscular Hemoglobin 28.6 pg (28.0-33.3); Mean Corpuscular Volume 85.3 fL (83.0-100.0); Mean Platelet Volume 9.7 fL (9.4-12.4); Platelet Count 625 K/mcL (140-400); Red Blood Count 2.66 M/mcL (3.82-4.97); Red Cell Distribution Width 14.4 % (11.5-14.5)
[2016-09-28 05:35] LABS: Albumin/Globulin Ratio 0.3 (1.1-2.2); Bilirubin,Total 0.5 mg/dL (0.2-1.2); Calcium 8.1 mg/dL (8.6-10.8); Globulin 4.9 g/dL (2.4-3.5); Potassium 3.6 mEq/L (3.5-4.5); Total Protein 6.3 g/dL (6.0-8.3)
[2016-09-28 05:40] LABS: Albumin 1.4 g/dL (3.5-5.0)
[2016-09-28] MEDS: *HR* Heparin 5,000 UNIT/ML VIAL SQ SCH ×3 (06:15→20:57)
[2016-09-28] MEDS: Piperacillin/Tazobactam 3.375 GM in D5% in Water (Mini-Bag+) 100 ML IVPB SCH ×3 (06:16→20:58)
[2016-09-28] MEDS: Lactobacillus 1 EACH CAP.SPRINK PO SCH ×2 (08:35→20:57)
[2016-09-28] MEDS: Famotidine 20 MG TABLET PO SCH ×2 (08:35→20:57)
[2016-09-28] MEDS: NORGESTIMATE ETHINYL ESTRADIOL PO SCH (08:37)
--- NOTE | 2016-09-28 09:17 | Cardiothoracic Progress Note ---
Date of Encounter: 09/28/16 Time of Encounter: 09:15 - Assessment and plan (1) Empyema of lung Current Visit: Yes Status: Acute White blood cell count continues to decrease. We will discontinue the FACIL[employer]IES DIRECTOR pump and place the patient on intermittent IV narcotics. I will remove the skin clips tomorrow which is been 8 days. We will switch the patient to by mouth antibiotics tomorrow. Hopefully, she can be discharged on Monday. - Subjective Interval history: The patient ambulated frequently yesterday without difficulty. Vital Signs, Last 4 Hours Temp Pulse Resp BP Pulse Ox 09/28/16 07:38 98.2 F 89 18 126/89 96 Oxgyen Flow Rate Oxygen Flow Rate (LPM) 2 Clinical Data, last 8 Hours Output, Urine Amount 600 Weight 09/26/16 09/27/16 09/28/16 23:59 23:59 23:59 Weight 112.8 kg 113.1 kg 111.4 kg Lungs are clear to percussion and auscultation. Heart is in a normal sinus rhythm. The incision is healing well without signs of infection. Chest x-ray after chest tube removal reveals no pneumothorax. - Labs 09/28/16 04:25 09/28/16 04:25 Lab Results, Last 24 hours 09/28/16 09/28/16 04:25 04:25 WBC 14.0 H Hgb 7.6 L Hct 22.7 L Plt Count 625 H Sodium 139 Potassium 3.6 Chloride 103 Carbon Dioxide 25 BUN 10 Creatinine 1.68 H Glucose 92 Calcium 8.1 L Total Bilirubin 0.5 AST 19 ALT 10 Alkaline Phosphatase 92 - VTE Documentation of Mechanical Device: Intermittent pneumatic compression device Consult Discharge Plan - Plan Instructions: Chest Tubes (DC), Chest Tubes (GEN), Thoracotomy (DC), Lung Lobectomy (DC) Referrals: Kathy Interiano CNP [Primary Care Provider] - 10/04/16 11:00 am () Mindi Hurtado MD [Partnered Physician] - 10/20/16 1:20 pm
--- NOTE | 2016-09-28 09:35 | Pulmonology Progress Note ---
Date of Encounter: 09/28/16 Time of Encounter: 09:33 Assessment and Plan (1) Empyema of lung Current Visit: Yes Status: Acute Clinically feel on right trajectory. WBC trending down. chest tubes removed agree with continued ambualtion OOBTC incentive fredy discharge planned for later this week PO ABx agree with augmentin x 2 weeks with f/u (Appears with CTS Pulmonary would also be happy to f/u if needed) Will sign off please call with questions (2) Acute kidney injury Current Visit: Yes Status: Acute has improved but appears to have plateaued. ?new baseline or what is more likely will continue to improve over longer period of time. cont to encourage PO intake renally dose all meds (3) DVT prophylaxis Current Visit: Yes Status: Acute would cont Chemical DVT prophylaxis while in patient Subjective Principal diagnosis: Empyema Interval history: low grade fever overnight generally doing better. Chest tubes removed patient noted to ambulate 3 laps around Unit. Objective PUL Vital signs: Last Vital Signs Temp 98.2 F 09/28/16 07:38 Pulse 89 09/28/16 07:38 Resp 18 09/28/16 07:38 BP 126/89 09/28/16 07:38 Pulse Ox 96 09/28/16 07:38 General appearance: no acute distress Effort: normal Auscultation: bilateral: diminished breath sounds Gastrointestinal: normoactive bowel sounds normal mental status, non-focal exam Results - Laboratory Findings CBC and BMP: 09/28/16 04:25 09/28/16 04:25 ABG ABG pH 7.37 pH Units (7.32-7.45) 09/22/16 04:25 ABG pCO2 38 mmHg (35-45) 09/22/16 04:25 ABG pO2 85 mmHg (85-104) 09/22/16 04:25 ABG O2 Saturation 96 % (95-98) 09/22/16 04:25 PT/INR, D-dimer PT 16.6 Seconds (9.4-12.1) H 09/21/16 04:11 Abnormal lab findings: Abnormal lab results WBC 14.0 K/mcL (4.3-11.1) H 09/28/16 04:25 RBC 2.66 M/mcL (3.82-4.97) L 09/28/16 04:25 Hgb 7.6 g/dL (11.5-15.4) L 09/28/16 04:25 Hct 22.7 % (35.3-44.9) L 09/28/16 04:25 Plt Count 625 K/mcL (140-400) H 09/28/16 04:25 Immature Gran % 4.3 % (0-4) H 09/22/16 13:50 Metamyelocytes % 2.0 % (0) H 09/26/16 04:00 Myelocytes % 2.0 % (0) H 09/25/16 04:20 Neutrophils # 16.9 K/mcL (1.6-8.9) H 09/26/16 04:00 Lymphocytes # 0.4 K/mcL (0.6-4.6) L 09/26/16 04:00 Monocytes # 2.4 K/mcL (0.0-1.3) H 09/26/16 04:00 Reactive Lymphocytes Present (Not Present) A 09/26/16 04:00 Toxic Granulation Present (Not Present) A 09/23/16 03:55 Platelet Estimate Increased (Normal) H 09/26/16 04:00 Large Platelets Present (Not Present) A 09/26/16 04:00 ESR 115 mm/hr (0-15) H 09/28/16 04:25 PT 16.6 Seconds (9.4-12.1) H 09/21/16 04:11 ABG Base Excess -3.0 mEq/L (-2.0 to 3.0) L 09/22/16 04:25 Creatinine 1.68 mg/dL (0.57-1.11) H 09/28/16 04:25 Est GFR ( Amer) 47 (> 60) L 09/28/16 04:25 Est GFR (Non-Af Amer) 39 (> 60) L 09/28/16 04:25 POC Glucose 97 (58-89) H 09/27/16 21:26 Calcium 8.1 mg/dL (8.6-10.8) L 09/28/16 04:25 Phosphorus 5.7 mg/dL (2.3-4.7) H 09/22/16 15:07 Albumin 1.4 g/dL (3.5-5.0) L 09/28/16 04:25 Globulin 4.9 g/dL (2.4-3.5) H 09/28/16 04:25 Albumin/Globulin Ratio 0.3 (1.1-2.2) L 09/28/16 04:25 Vancomycin Trough 22.5 mcg/mL (10-20) H* 09/21/16 11:40 - Microbiology Findings Microbiology Findings: Microbiology, Last 48 Hours 09/21/16 08:30 Anaerobic Culture - Final Pleural Fluid No anaerobes were recovered. - Clinical Findings Intake & Output: Intake & Output 09/27/16 09/28/16 09/28/16 23:59 07:59 15:59 Intake Total 790 / 790 600 / 600 Output Total 300 / 300 600 / 600 Balance 490 / 490 0 / 0 Weight 111.4 kg - VTE Documentation of Mechanical Device: Intermittent pneumatic compression device Consult Discharge Plan - Plan Instructions: Chest Tubes (DC), Chest Tubes (GEN), Thoracotomy (DC), Lung Lobectomy (DC) Referrals: Kathy Interiano CNP [Primary Care Provider] - 10/04/16 11:00 am () Mindi Hurtado MD [Partnered Physician] - 10/20/16 1:20 pm
[2016-09-28] MEDS: *HR* HYDROmorphone 2 MG/ML SYRINGE IVP PRN ×2 (15:49→21:47)
--- NOTE | 2016-09-28 15:57 | Nephrology Consult Note ---
Date of Encounter: 09/28/16 Time of Encounter: 15:55 Assessment and Plan (1) Anemia Current Visit: Yes Status: Acute Check iron stores, vitamin b12 and folate. Monitor for bleeding. Qualifiers: Qualified Code(s): D64.9 - Anemia, unspecified (2) Acute kidney injury Current Visit: Yes Status: Acute Multifactorial nonoliguric RAVINDER secondary to nephrotoxins and sepsis. Her creatinine is improving and I anticipate she will return to her baseline renal function. Will check renal ultrasound. Urine sodium and urine creatinine. (3) Empyema of lung Current Visit: Yes Status: Acute Per pulmonary and primary team. (4) Sepsis Current Visit: Yes Status: Acute secondary to pneumonia. Continue antibiotics per pulmonary and primary team. Qualifiers: Sepsis type: sepsis due to unspecified organism Qualified Code(s): A41.9 - Sepsis, unspecified organism History of Present Illness - Reason for Consult Consult date: 09/28/16 Acute Kidney Injury - Chief Complaint RAVINDER - History of Present Illness Ms. Christian is a 21 yo woman with no significant medical history who presented with a pneumonia and empyema. She had sepsis and upon presentation she had normal creatinine. She developed RAVINDER and her infection was treated with broad spectrum antibiotics. [facility] was consulted when her creatinine did not return to normal. At the time of my evaluation the patient had pain in her thoracotomy site related to a recent cough. Otherwise she felt much better. Past Med Surg Social Fam HX - Past Medical History Medical history: no medical history Psychiatric history: anxiety, depression - Past Surgical History Surgical History: no surgical history - Social History Smoking Status: Never smoker Smokeless Tobacco Status: No Alcohol use: occasionally Drug use: none - Family History Maternal Hx Family Respiratory Disorders: Yes (Histoplasmosis recurrent in maternal aunt) Mother Hx Family Cardiac Disorders: Yes (HTN) Medications and Allergies Ascorbate Calcium [Vitamin C] 500 mg PO DAILY 09/19/16 [History] Cyanocobalamin (Vitamin B-12) [Vitamin B12] 1,000 mcg PO DAILY 09/19/16 [History ] Ibuprofen [Motrin] 600 mg PO Q6HR PRN 09/19/16 [History] Levofloxacin [Levaquin] 750 mg PO DAILY 09/19/16 [History] Levothyroxine [Synthroid] 50 mcg PO DAILY 09/19/16 [History] Metformin [Glucophage] 2,000 mg PO DAILY 09/19/16 [History] Norgestimate-Ethinyl Estradiol [Sprintec 28 Day Tablet] 1 tab PO DAILY 09/19/16 [History] Allergies No Known Allergies Allergy (Verified 09/19/16 17:52) Review of Systems All Systems: reviewed and no additional remarkable complaints except as stated ( as documented in the HPI.) Exam - Vital Signs Vital signs: Initial Vital Signs Temp Pulse Resp BP Pulse Ox 98.8 F 128 16 123/80 95 09/19/16 17:50 09/19/16 17:50 09/19/16 17:50 09/19/16 17:50 09/19/16 17:50 Vital Signs - Last 8 Hours Temp Pulse Resp BP Pulse Ox 09/28/16 12:18 20 100 09/28/16 11:45 112 09/28/16 11:12 97.9 F 114 16 131/108 93 L 09/28/16 08:15 92 Intake and Output 09/27/16 09/28/16 09/28/16 23:59 07:59 15:59 Intake Total 790 / 790 600 / 600 460 / 460 Output Total 300 / 300 600 / 600 Balance 490 / 490 0 / 0 460 / 460 Intake: IV Fluids 150 / 150 0 / 0 100 / 100 Cleocin 600 MG/50 ML 600 50 / 50 mg In 50 ml @ 50 mls/hr IVPB Q8HR [facility] Rx#: [id number] Zosyn 3.375 GM In 100 / 100 0 / 0 100 / 100 Dextrose 5% (Minibag+) 100 ML 100 ML @ 25 mls/hr IVPB Q8H [facility]RES Rx#: [id number] Oral 640 / 640 600 / 600 360 / 360 Output: Urine 300 / 300 600 / 600 Other: Meal Dinner Lunch Percent of Meal Consumed 50% 100% Stool Size Small Moderate Stool Consistency soft soft formed Stool Characteristics Normal for Patient Stool Color Brown Brown # Voids 1 Weight 111.4 kg Blood Glucose* 97 94 87 Patient Weight 09/28/16 23:59 Weight 111.4 kg - General Appearance General appearance: well-developed, well-nourished, obese EENT: ATNC Neck: supple Additional Comments: rales in left lung base. Wound dressing in place. Cardiology: edema, regular rhythm Additional Comments: tachycardic regular rhythm. Gastrointestinal: normoactive bowel sounds, no tenderness Integumentary: warm and dry Neurologic: alert and oriented x3 Musculoskeletal: no cyanosis Psychiatric: mood/affect appropriate Results - Lab Results 09/29/16 00:30 09/29/16 00:30 Most recent lab results ABG pH 7.37 pH Units (7.32-7.45) 09/22/16 04:25 ABG pCO2 38 mmHg (35-45) 09/22/16 04:25 ABG pO2 85 mmHg (85-104) 09/22/16 04:25 ABG HCO3 22.0 mEQ/L (21-27) 09/22/16 04:25 ABG O2 Saturation 96 % (95-98) 09/22/16 04:25 Calcium 8.1 mg/dL (8.6-10.8) L 09/28/16 04:25 Phosphorus 5.7 mg/dL (2.3-4.7) H 09/22/16 15:07 Consult Discharge Plan - Plan Instructions: Chest Tubes (DC), Chest Tubes (GEN), Thoracotomy (DC), Lung Lobectomy (DC) Referrals: Kathy Interiano CNP [Primary Care Provider] - 10/04/16 11:00 am () Mindi Hurtado MD [Partnered Physician] - 10/20/16 1:20 pm
--- NOTE | 2016-09-28 19:55 | Internal Med Progress Note ---
Date of Encounter: 09/28/16 Time of Encounter: 11:40 - Assessment and plan (1) Empyema of lung Current Visit: Yes Status: Acute Assessment and plan: s/p decortication. Thoracic surgery and pulmonary team following the pt. Cultures / gram stain shows gram negative rods. Continue zosyn. (2) Acute blood loss as cause of postoperative anemia Current Visit: Yes Status: Acute Assessment and plan: s/p 1 unit of PRBCs. monitor cbc (3) Acute kidney injury Current Visit: Yes Status: Acute Assessment and plan: Probably secondary to sepsis / ATN. Treated with IV fluids with some improvement of renal function. Vancomycin was discontinued and metformin was held. Monitor renal function. Nephrology consultation - discussed with Dr Bruno. (4) Nona infection of genital region Current Visit: Yes Status: Acute Assessment and plan: continue nystatin cream (5) DVT prophylaxis Current Visit: Yes Status: Acute Assessment and plan: Continue subcutaneous heparin (6) Leukocytosis Current Visit: Yes Status: Acute Assessment and plan: Likely due to empyema and sepsis. WBC count gradually improving Qualifiers: Leukocytosis type: unspecified Qualified Code(s): D72.829 - Elevated white blood cell count, unspecified (7) Sepsis Current Visit: Yes Status: Acute Assessment and plan: Sepsis secondary to left lung loculated empyema, s/p Left posteriolateral thoracotomy and Decortication. Fever and leucocytosis improving. Qualifiers: Sepsis type: sepsis due to unspecified organism Qualified Code(s): A41.9 - Sepsis, unspecified organism (8) Hypothyroidism Current Visit: Yes Status: Chronic Assessment and plan: Continue Synthroid Qualifiers: Hypothyroidism type: acquired Qualified Code(s): E03.9 - Hypothyroidism, unspecified (9) Obesity (BMI 30-39.9) Current Visit: No Status: Chronic Assessment and plan: Supportive care - Subjective Interval history: Pt is seen and examined at the bedside and chart reviewed. Pt reports feeling better than yesterday. Reports intermittent chest pain at the site of chest tube , which is improving. Denies nausea, vomiting, fever, chills today. Diarrhea is improving. - Constitutional Vitals: Temp Pulse Resp BP Pulse Ox 98.4 F 102 18 135/85 97 09/28/16 16:23 09/28/16 16:23 09/28/16 16:23 09/28/16 16:23 09/28/16 16:23 General appearance: Present: A&O X 3 Exam: General: Not in acute distress at the time of my evaluation Lungs: Few left basilar crackles Cardiac: Regular rate and rhythm. No significant murmurs Abdomen: Soft, non tender. Bowel sounds present Neurological: Alert and oriented. No gross localizing deficits Psych: Not agrressive or agitated Extremities: Bilateral leg edema Skin: No generalized rash Internal Medicine: Result - Labs CBC & Chem 7: 09/28/16 04:25 09/28/16 04:25 Labs: Short CBC 09/28/16 Range/Units 04:25 WBC 14.0 H (4.3-11.1) K/mcL Hgb 7.6 L (11.5-15.4) g/dL Hct 22.7 L (35.3-44.9) % Plt Count 625 H (140-400) K/mcL BMP 09/25/16 09/28/16 04:20 04:25 Sodium 137 139 Potassium 3.8 3.6 Chloride 106 103 Carbon Dioxide 22 25 BUN 17 10 Creatinine 2.25 H 1.68 H Glucose 95 92 Calcium 8.0 L 8.1 L Liver Function 09/28/16 Range/Units 04:25 Total Bilirubin 0.5 (0.2-1.2) mg/dL AST 19 (5-34) Units/L ALT 10 (0-55) Units/L Alkaline Phosphatase 92 (38-126) Units/L Albumin 1.4 L (3.5-5.0) g/dL - ABG Interpretation ABG results: ABG ABG pH 7.37 pH Units (7.32-7.45) 09/22/16 04:25 ABG pCO2 38 mmHg (35-45) 09/22/16 04:25 ABG pO2 85 mmHg (85-104) 09/22/16 04:25 ABG O2 Saturation 96 % (95-98) 09/22/16 04:25 PT/INR, D-dimer PT 16.6 Seconds (9.4-12.1) H 09/21/16 04:11 - Impressions Impressions Retroperitoneum Ultrasound 09/28/16 18:30 IMPRESSION: 1. Limited evaluation of the left kidney. 2. Unremarkable right kidney and bladder. D/ / Andrew Bond MD / Andrew Bond MD Interpreting Provider: Andrew Bond MD - VTE Documentation of Mechanical Device: Intermittent pneumatic compression device Consult Discharge Plan - Plan Instructions: Chest Tubes (DC), Chest Tubes (GEN), Thoracotomy (DC), Lung Lobectomy (DC) Referrals: Kathy Interiano CNP [Primary Care Provider] - 10/04/16 11:00 am () Mindi Hurtado MD [Partnered Physician] - 10/20/16 1:20 pm
[2016-09-28 22:01] LABS: Bilirubin,Urine Negative (Negative); Blood,Urine Small (Negative); Clarity,Urine Clear (Clear); Color,Urine Yellow (Yellow); Glucose,Urine (UA) Normal (Normal); Ketones,Urine Negative (Negative); Leukocyte Esterase,Urine Negative (Negative); Nitrite,Urine Negative (Negative); Protein,Urine Negative (Neg-Trace); Specific Gravity,Urine 1.006 (1.010-1.025); Urobilinogen,Urine Normal (Normal)
[2016-09-28 22:08] LABS: Bacteria,Urine None Seen per hpf (None-Few); Hyaline Casts,Urine None Seen per lpf (None-Few); Squamous Epithelial Cell,Urine Many per lpf (None-Few); WBC,Urine 0-3 per hpf (0-3)
[2016-09-29] MEDS: *HR* HYDROmorphone 2 MG/ML SYRINGE IVP PRN ×3 (00:48→08:21)
[2016-09-29 01:07] LABS: Basophils % 0.2 %; Eosinophils # 0.1 K/mcL (0.0-0.6); Eosinophils % 0.8 %; Hemoglobin 7.6 g/dL (11.5-15.4); Immature Granulocytes % 2.2 % (0-4); Lymphocytes # 2.7 K/mcL (0.6-4.6); Lymphocytes % 19.7 %; Mean Corpuscular Hemoglobin 28.4 pg (28.0-33.3); Mean Corpuscular Volume 85.8 fL (83.0-100.0); Mean Platelet Volume 9.8 fL (9.4-12.4); Monocytes # 0.9 K/mcL (0.0-1.3); Monocytes % 6.2 %; Neutrophils # 9.8 K/mcL (1.6-8.9); Platelet Count 641 K/mcL (140-400); Red Blood Count 2.68 M/mcL (3.82-4.97); Red Cell Distribution Width 14.3 % (11.5-14.5); Segmented Neutrophils % 70.9 %
[2016-09-29 01:20] LABS: Calcium 8.1 mg/dL (8.6-10.8); Potassium 3.6 mEq/L (3.5-4.5)
[2016-09-29 01:34] LABS: Platelet Estimate Increased (Normal)
[2016-09-29 01:38] LABS: Large Platelets Present (Not Present)
[2016-09-29 01:55] LABS: Folate 11.6 ng/mL (7.0-31.4)
[2016-09-29] MEDS: Ipratropium Neb 0.5 MG NEBULIZER IH SCH ×6 (04:00→23:05)
[2016-09-29] MEDS: *HR* OxyCODONE/APAP 5/325 TABLET PO PRN ×5 (04:37→23:55)
[2016-09-29] MEDS: Piperacillin/Tazobactam 3.375 GM in D5% in Water (Mini-Bag+) 100 ML IVPB SCH (06:26)
[2016-09-29] MEDS: *HR* Heparin 5,000 UNIT/ML VIAL SQ SCH ×3 (06:26→21:25)
[2016-09-29] MEDS: Nystatin Cream 15 GM TUBE TP SCH ×4 (06:27→21:38)
[2016-09-29] MEDS: Lactobacillus 1 EACH CAP.SPRINK PO SCH ×2 (08:20→21:25)
[2016-09-29] MEDS: Famotidine 20 MG TABLET PO SCH ×2 (08:20→21:25)
[2016-09-29] MEDS: NORGESTIMATE ETHINYL ESTRADIOL PO SCH (08:20)
--- NOTE | 2016-09-29 08:34 | Cardiothoracic Progress Note ---
Date of Encounter: 09/29/16 Time of Encounter: 08:31 - Assessment and plan (1) Empyema of lung Current Visit: Yes Status: Acute White blood cell count and creatinine continued to decrease. We will switch her to by mouth antibiotics today per pulmonary's recommendations. I will remove her skin clips today after she receives IV narcotics for pain control. Hopefully , the patient can be discharged tomorrow. - Subjective Interval history: The patient complains of mild postoperative pain. She is ambulating without difficulty. Vital Signs, Last 4 Hours Temp Pulse Resp BP Pulse Ox 09/29/16 08:17 108 91 L 09/29/16 07:33 98.3 F 93 16 127/74 95 Oxgyen Flow Rate Oxygen Flow Rate (LPM) 2 Clinical Data, last 8 Hours Output, Urine Amount 900 Output, Urine Amount 750 Weight 09/27/16 09/28/16 09/29/16 23:59 23:59 23:59 Weight 113.1 kg 111.4 kg 112 kg Lungs are clear to percussion and auscultation. Heart is in a normal sinus rhythm. All incisions are healing well without signs of infection. Chest x-ray reveals improving infiltrate, but no pneumothorax. - Labs 09/29/16 00:30 09/29/16 00:30 Lab Results, Last 24 hours 09/25/16 09/29/16 09/29/16 04:20 00:30 00:30 WBC 13.8 H Hgb 7.6 L Hct 23.0 L Plt Count 641 H Sodium 137 137 Potassium 3.8 3.6 Chloride 106 103 Carbon Dioxide 22 26 BUN 17 10 Creatinine 2.25 H 1.53 H Glucose 95 92 Calcium 8.0 L 8.1 L - VTE Documentation of Mechanical Device: Intermittent pneumatic compression device Consult Discharge Plan - Plan Instructions: Chest Tubes (DC), Chest Tubes (GEN), Thoracotomy (DC), Lung Lobectomy (DC) Referrals: Kathy Interiano CNP [Primary Care Provider] - 10/04/16 11:00 am () Mindi Hurtado MD [Partnered Physician] - 10/20/16 1:20 pm
[2016-09-29] MEDS: Acetaminophen 325 MG TABLET PO PRN (13:28)
--- NOTE | 2016-09-29 18:58 | Nephrology Progress Note ---
Date of Encounter: 09/29/16 Time of Encounter: 18:56 - Assessment and Plan (1) Anemia Current Visit: Yes Status: Acute Patient with significant iron deficiency. I recommend oral iron replacement and repeat iron studies as an outpatient. If unable to replete iron stores via oral method consider iv replacement. Qualifiers: Qualified Code(s): D64.9 - Anemia, unspecified (2) Acute kidney injury Current Visit: Yes Status: Acute Creatinine continues to improve. Anticipate recovery. Upon discharge patient should have weekly bmp x 2 and then per her primary care provider if her renal function has not returned to normal. She needs to maintain good oral hydration as she recovers from ATN. Her primary care provider can refer her back to [facility] if any concerns. Will follow peripherally. Call if questions or concerns. (3) Sepsis Current Visit: Yes Status: Acute Resolving. Qualifiers: Sepsis type: sepsis due to unspecified organism Qualified Code(s): A41.9 - Sepsis, unspecified organism Subjective Principal diagnosis: Empyema Interval history: Patient seen and evaluated. No new complaint. She is feeling better. Her mother is at her bedside. Review of systems stable. Objective - Vital Signs Vital signs: Vital Signs Temp Pulse Resp BP Pulse Ox 09/29/16 16:56 106 09/29/16 16:17 98.8 F 106 18 127/88 105 H 09/29/16 13:25 106 94 L 09/29/16 11:05 99.6 F 100 16 128/88 94 L 09/29/16 10:50 97 92 L 09/29/16 08:17 108 91 L 09/29/16 07:33 98.3 F 93 16 127/74 95 09/29/16 03:45 98.9 F 101 20 132/92 93 L 09/29/16 00:32 98.9 F 98 18 144/82 96 09/28/16 21:04 98.7 F 108 20 136/92 96 09/28/16 20:26 18 97 Intake and Output 09/29/16 09/29/16 09/29/16 07:59 15:59 23:59 Intake Total 100 / 100 1320 / 1320 340 / 340 Output Total 1650 / 1650 900 / 900 450 / 450 Balance -1550 / -1550 420 / 420 -110 / -110 Intake: IV Fluids 100 / 100 100 / 100 Zosyn 3.375 GM In 100 / 100 100 / 100 Dextrose 5% (Minibag+) 100 ML 100 ML @ 25 mls/hr IVPB Q8H [facility] Rx#: [id number] Oral 1320 / 1320 240 / 240 Output: Urine 1650 / 1650 900 / 900 450 / 450 Other: Meal Lunch Dinner Percent of Meal Consumed 50% 60% Weight 112 kg Blood Glucose* 99 100 101 Patient Weight 09/29/16 23:59 Weight 112 kg - General Appearance General appearance: Present: well-developed, well-nourished EENT: Present: ATNC Neck: Present: supple Respiratory: Present: clear (anterior) Cardiology: Present: edema, regular rate, regular rhythm Gastrointestinal: Present: normoactive bowel sounds, no tenderness Integumentary: Present: warm and dry Neurologic: Present: alert and oriented x3 Musculoskeletal: Present: no cyanosis Psychiatric: Present: mood/affect appropriate - Lab 09/29/16 00:30 09/29/16 00:30 Most recent lab results ABG pH 7.37 pH Units (7.32-7.45) 09/22/16 04:25 ABG pCO2 38 mmHg (35-45) 09/22/16 04:25 ABG pO2 85 mmHg (85-104) 09/22/16 04:25 ABG HCO3 22.0 mEQ/L (21-27) 09/22/16 04:25 ABG O2 Saturation 96 % (95-98) 09/22/16 04:25 Calcium 8.1 mg/dL (8.6-10.8) L 09/29/16 00:30 Phosphorus 5.7 mg/dL (2.3-4.7) H 09/22/16 15:07 Urine Creatinine 37 mg/dL 09/28/16 21:52 Urine Sodium 55.0 mEq/L 09/28/16 21:52 - Imaging Kidney/bladder ultrasound: report reviewed - VTE Documentation of Mechanical Device: Intermittent pneumatic compression device Consult Discharge Plan - Plan Instructions: Chest Tubes (DC), Chest Tubes (GEN), Thoracotomy (DC), Lung Lobectomy (DC) Referrals: Kathy Interiano CNP [Primary Care Provider] - 10/04/16 11:00 am () Mindi Hurtado MD [Partnered Physician] - 10/20/16 1:20 pm
--- NOTE | 2016-09-29 20:55 | Internal Med Progress Note ---
Date of Encounter: 09/29/16 Time of Encounter: 11:20 - Assessment and plan (1) Empyema of lung Status: Acute Assessment and plan: s/p decortication. Thoracic surgery and pulmonary team following the pt. Cultures / gram stain shows gram negative rods. Continue zosyn. (2) Acute blood loss as cause of postoperative anemia Status: Acute Assessment and plan: s/p 1 unit of PRBCs. monitor cbc (3) Acute kidney injury Status: Acute Assessment and plan: Probably secondary to sepsis / ATN. Treated with IV fluids with some improvement of renal function. Vancomycin was discontinued and metformin was held. Monitor renal function. 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 (4) Nona infection of genital region Status: Acute Assessment and plan: continue nystatin cream (5) DVT prophylaxis Status: Acute Assessment and plan: Continue subcutaneous heparin (6) Leukocytosis Status: Acute Assessment and plan: Likely due to empyema and sepsis. WBC count gradually improving Qualifiers: Leukocytosis type: unspecified Qualified Code(s): D72.829 - Elevated white blood cell count, unspecified (7) Sepsis Status: Resolved Assessment and plan: Sepsis secondary to left lung loculated empyema, s/p Left posteriolateral thoracotomy and Decortication. Fever and leucocytosis improved. Qualifiers: Sepsis type: sepsis due to unspecified organism Qualified Code(s): A41.9 - Sepsis, unspecified organism (8) Hypothyroidism Status: Chronic Assessment and plan: Continue Synthroid Qualifiers: Hypothyroidism type: acquired Qualified Code(s): E03.9 - Hypothyroidism, unspecified (9) Obesity (BMI 30-39.9) Status: Chronic Assessment and plan: Supportive care - Subjective Interval history: Pt is seen and examined at the bedside and chart reviewed. Pt reports feeling better today. Had panchito removed today. Intermittent chest pain. Denies nausea , vomiting, fever, chills today. No diarrhea today. - Constitutional Vitals: Temp Pulse Resp BP Pulse Ox 98.8 F 106 18 127/88 105 H 09/29/16 16:17 09/29/16 16:56 09/29/16 16:17 09/29/16 16:17 09/29/16 16:17 Exam: General: Not in acute distress at the time of my evaluation Lungs: Clear to auscultation. Left sided posterior chest wall dressing present Cardiac: Regular rate and rhythm. No significant murmurs Abdomen: Soft, non tender. Bowel sounds present Neurological: Alert and oriented. No gross localizing deficits Psych: Not agrressive or agitated Extremities: B/L lower extremity edema present Skin: No generalized rash Internal Medicine: Result - Labs CBC & Chem 7: 09/30/16 04:19 09/30/16 04:19 Labs: Short CBC 09/29/16 Range/Units 00:30 WBC 13.8 H (4.3-11.1) K/mcL Hgb 7.6 L (11.5-15.4) g/dL Hct 23.0 L (35.3-44.9) % Plt Count 641 H (140-400) K/mcL Neutrophils # 9.8 H (1.6-8.9) K/mcL BMP 09/29/16 00:30 Sodium 137 Potassium 3.6 Chloride 103 Carbon Dioxide 26 BUN 10 Creatinine 1.53 H Glucose 92 Calcium 8.1 L Urine 09/28/16 Range/Units 21:52 Urine Color Yellow (Yellow) Urine Clarity Clear (Clear) Urine pH 7.0 (5.0-8.0) pH Units Ur Specific [place] 1.006 L (1.010-1.025) Urine Protein Negative (Neg-Trace) mg/dL Urine Glucose (UA) Normal (Normal) mg/dL - ABG Interpretation ABG results: ABG ABG pH 7.37 pH Units (7.32-7.45) 09/22/16 04:25 ABG pCO2 38 mmHg (35-45) 09/22/16 04:25 ABG pO2 85 mmHg (85-104) 09/22/16 04:25 ABG O2 Saturation 96 % (95-98) 09/22/16 04:25 PT/INR, D-dimer PT 16.6 Seconds (9.4-12.1) H 09/21/16 04:11 - VTE Documentation of Mechanical Device: Intermittent pneumatic compression device Consult Discharge Plan - Plan Instructions: Oxycodone/Acetaminophen (By mouth), Amoxicillin/Clavulanate Potassium (By mouth), Chest Tubes (DC), Chest Tubes (GEN), Thoracotomy (DC), Lung Lobectomy (DC), Sepsis (DC), Anemia (GEN) Referrals: wound, check [Other] - 10/06/16 2:45 pm (THIS APPOINTMENT IS FOR A WOUND CHECK WITH DR. HURTADO.) Kathy Interiano CNP [Primary Care Provider] - 10/04/16 11:00 am () Mindi Hurtado MD [Partnered Physician] - 10/20/16 1:20 pm Prescriptions: OxyCODONE/APAP 5/325 [Percocet 5/325 MG] 1 each PO Q4HR PRN #50 tablet PRN Reason: Pain Amoxicillin/Clavulanate [Augmentin] 875 mg PO BIDWM #28 tablet
[2016-09-30] MEDS: Acetaminophen 325 MG TABLET PO PRN ×2 (02:16→11:13)
[2016-09-30] MEDS: Ipratropium Neb 0.5 MG NEBULIZER IH SCH ×3 (04:10→16:49)
[2016-09-30] MEDS: *HR* OxyCODONE/APAP 5/325 TABLET PO PRN ×4 (04:11→17:18)
[2016-09-30] MEDS: Nystatin Cream 15 GM TUBE TP SCH ×3 (04:22→16:27)
[2016-09-30 04:40] LABS: Eosinophils # 0.1 K/mcL (0.0-0.6); Hemoglobin 7.5 g/dL (11.5-15.4); Mean Corpuscular HGB Conc 32.6 g/dL (31.6-35.5); Mean Corpuscular Volume 85.8 fL (83.0-100.0); Mean Platelet Volume 9.9 fL (9.4-12.4); Platelet Count 638 K/mcL (140-400); Red Blood Count 2.68 M/mcL (3.82-4.97); Red Cell Distribution Width 14.1 % (11.5-14.5)
[2016-09-30 04:57] LABS: BUN/Creatinine Ratio 7 (6-26); Blood Urea Nitrogen 9 mg/dL (7-20); Calcium 8.5 mg/dL (8.6-10.8); Carbon Dioxide 24 mEq/L (19-29); Chloride 105 mEq/L (98-109); Glucose 90 mg/dL (70-99); Osmolality,Calculated 286 (280-300); Sodium 139 mEq/L (136-145); eGFR For African Americans > 60 (> 60); eGFR For Non-African Americans 51 (> 60)
[2016-09-30 04:58] LABS: Potassium 3.6 mEq/L (3.5-4.5)
[2016-09-30] MEDS: *HR* Heparin 5,000 UNIT/ML VIAL SQ SCH ×2 (06:16→16:27)
[2016-09-30 07:03] LABS: Basophils # 0.1 K/mcL (0.0-0.2); Lymphocytes # 3.3 K/mcL (0.6-4.6); Monocytes # 0.7 K/mcL (0.0-1.3); Neutrophils # 6.8 K/mcL (1.6-8.9); Platelet Estimate Marked Increase (Normal); Reactive Lymphocytes Present (Not Present)
[2016-09-30] MEDS: NORGESTIMATE ETHINYL ESTRADIOL PO SCH (08:41)
[2016-09-30] MEDS: Lactobacillus 1 EACH CAP.SPRINK PO SCH (08:42)
[2016-09-30] MEDS: Famotidine 20 MG TABLET PO SCH (08:42)
--- NOTE | 2016-09-30 09:33 | Discharge Summary ---
Date of Encounter: 09/30/16 Time of Encounter: 09:31 - Discharge Diagnosis (1) Empyema of lung Priority: Primary Status: Acute - Discharge Medications Prescriptions: OxyCODONE/APAP 5/325 [Percocet 5/325 MG] 1 each PO Q4HR PRN #50 tablet PRN Reason: Pain Amoxicillin/Clavulanate [Augmentin] 875 mg PO BIDWM #28 tablet Home Medications: Ascorbate Calcium [Vitamin C] 500 mg PO DAILY 09/19/16 [History] Cyanocobalamin (Vitamin B-12) [Vitamin B12] 1,000 mcg PO DAILY 09/19/16 [History ] Levothyroxine [Synthroid] 50 mcg PO DAILY 09/19/16 [History] Metformin [Glucophage] 2,000 mg PO DAILY 09/19/16 [History] Norgestimate-Ethinyl Estradiol [Sprintec 28 Day Tablet] 1 tab PO DAILY 09/19/16 [History] Amoxicillin/Clavulanate [Augmentin] 875 mg PO BIDWM #28 tablet 09/30/16 [Rx] OxyCODONE/APAP 5/325 [Percocet 5/325 MG] 1 each PO Q4HR PRN #50 tablet 09/30/16 [Rx] Allergies/Adverse Reactions: Allergies No Known Allergies Allergy (Verified 09/19/16 17:52) Procedures/tests Complete & Pending: Procedures Performed prior 72 hours Category Date Time Status US retroperitoneal comp [US] Routine Exams 09/28/16 18:30 Completed Date of admission: 09/20/16 00:29 Primary care physician: Kathy Interiano CNP Consults: 09/21/16 11:52 Consult to Pulmonology [CONS] Routine Consulting Provider: Pulm [facility] Sleep Maria Alejandra Reason for Consult: Post op thoracotomy Time Notified: 11:53 Call Completed: Yes 09/21/16 12:46 Consult to Invasive Line Access Team [CONS] Routine Reason for Consult: difficult stick Line Type: EPIV PICC line indications: Limited vascular access Time Notified: 12:47 Call Completed: Yes 09/26/16 10:11 Consult to Invasive Line Access Team [CONS] Routine Reason for Consult: limited vasc access Line Type: EPIV 09/27/16 13:14 Consult to Foreign Student Adviser [CONS] Routine Reason for SW Consult: FINANCIAL CONCERNS 09/28/16 15:36 Consult to Nephrology [CONS] Routine Consulting Provider: [facility] [place] [facility]ARMIDA Reason for Consult: ACUTE kIDNEY INJURY Call Completed: Yes Procedure(s) Performed: 1. Left posteriolateral thoracotomy performed September 21, 2016. 2. Decortication, complete performed September 21, 2016.. Discharging clinician: Mindi Hurtado Anticipated date of discharge: 09/30/16 - Patient Status Disposition: Home, Self-Care Condition: Good Functional capacity at discharge: independent ambulation Overall status at discharge: patient is progressing back to baseline - Discharge Instructions Instructions: Chest Tubes (DC), Chest Tubes (GEN), Thoracotomy (DC), Lung Lobectomy (DC) Follow Up With: wound, check [Other] - 10/06/16 2:45 pm (THIS APPOINTMENT IS FOR A WOUND CHECK WITH DR. HURTADO.) Kathy Interiano CNP [Primary Care Provider] - 10/04/16 11:00 am () Mindi Hurtado MD [Partnered Physician] - 10/20/16 1:20 pm - Diet and Activity Activity: no driving for four weeks, no lifting greater than 10 pounds for eight weeks, increase activity as tolerated Diet: diabetic diet - Hospital Course Hospital course: Ms. Christian is a 21 year old lady with hypothyroidism developed strep throat on August 27, 2016. The patient was initially treated with oral antibiotics; however, the throat pain continued. At this time she complained of fever and fatigue. The patient returned home from college and was seen by her primary care physician. The patient had persistent symptoms and was evaluated at [facility]. At this time a neck CT revealed sialadenitis and was admitted for intravenous antibiotic therapy. After discharge the patient continued to feel poorly, complaining of shortness of breath, chills, fever, and easy fatigability. The patient is again seen by her primary care physician who ordered a chest x-ray. This revealed a loculated left pleural effusion and the patient was then referred to [facility] emergency department for further evaluation. A chest CT performed last evening revealed a loculated left pleural effusion consistent with an empyema. The patient was admitted for antibiotic therapy and drainage of the effusion. She underwent a left thoracotomy and complete decortication on September 21, 2016. At the time of the operation patient was found to have approximately 4500 mL of yellow creamy pus within the left hemithorax. This was cultured and the Gram stain revealed abundant gram-negative rods; however, the culture failed to grow any organism. This was probably due to the fact that the patient had been on antibiotics preoperatively. The patient's postoperative course was slow, but uncomplicated. The chest tubes were removed and the patient was transitioned from intravenous antibiotics to oral antibiotics. The panchito removed on POD #8 and the midportion of the incision opened approximately 2 cm and drained a small amount of fluid. The patient had persistent drainage the following morning upon evaluation of the wound. The remaining portion of the wound is well -healed and there is no surrounding erythema. The patient and the patient's mother were instructed to allow the patient to shower each morning and 2 clean the wound twice a day. The patient was discharged home on POD #9. She will be followed up in the clinic next week for wound evaluation. - Time Spent with Patient Total time spent providing and/or coordinating discharge services: Physical Examination Vital Signs, Last 4 Hours Temp Pulse Resp BP Pulse Ox //17 07:57 101 96 //17 07:43 98.4 F 93 18 138/91 93 L General: Conversant, No Apparent Distress Neck: No JVD, Normal carotid pulses Cardiac: Reg Rate and Rhythm, Normal S1 and S2, No Murmur Lungs: Normal Breath Sounds, No Wheeze, Rales, Rhonchi Neuro: Alert and responsive, No focal deficits noted Vascular: Normal capillary refill Skin: Other (Open granulating wound in the midportion of the left thoracotomy incision. Small amount of thick, yellow drainage.) Extremities: No Clubbing, No Cyanosis, No Edema, Normal Pulses - VTE Documentation of Mechanical Device: Intermittent pneumatic compression device
[2016-09-30] MEDS ORDERED: FLU VACC QS2016-17 36MOS UP/PF 0.5 ML SYRINGE IM ONE (11:08)
[2016-09-30 11:16] VITALS: BP 124/89
--- NOTE | 2016-09-30 19:45 | Internal Med Progress Note ---
Date of Encounter: 09/30/16 Time of Encounter: 09:45 - Assessment and plan (1) Empyema of lung Status: Acute Assessment and plan: s/p decortication. Thoracic surgery and pulmonary team following the pt. Cultures / gram stain shows gram negative rods. Home with augmentin. (2) Acute blood loss as cause of postoperative anemia Status: Acute Assessment and plan: s/p 1 unit of PRBCs. F/U with PCP after discharge (3) Acute kidney injury Status: Acute Assessment and plan: Probably secondary to sepsis / ATN. Treated with IV fluids with some improvement of renal function. Vancomycin was discontinued and metformin was held. Renal function is improving. [employer]os[employer] Dr Bruno is consulted - can follow with Dr Bruno after discharge. (4) Nona infection of genital region Status: Acute Assessment and plan: continue nystatin cream (5) DVT prophylaxis Status: Acute Assessment and plan: Continue subcutaneous heparin (6) Leukocytosis Status: Acute Assessment and plan: Likely due to empyema and sepsis. WBC count gradually improving Qualifiers: Leukocytosis type: unspecified Qualified Code(s): D72.829 - Elevated white blood cell count, unspecified (7) Sepsis Status: Resolved Assessment and plan: Sepsis secondary to left lung loculated empyema, s/p Left posteriolateral thoracotomy and Decortication. Fever and leucocytosis improved. Qualifiers: Sepsis type: sepsis due to unspecified organism Qualified Code(s): A41.9 - Sepsis, unspecified organism (8) Hypothyroidism Status: Chronic Assessment and plan: Continue Synthroid Qualifiers: Hypothyroidism type: acquired Qualified Code(s): E03.9 - Hypothyroidism, unspecified (9) Obesity (BMI 30-39.9) Status: Chronic Assessment and plan: Supportive care (10) Hypoalbuminemia Status: Acute Assessment and plan: Possibly due to infection and sepsis. Advised high protein diet and protein supplements - Subjective Interval history: Pt is seen and examined at the bedside and chart reviewed. Pt reports feeling better today. Dressing removed today and is allowed to shower per the thoracic surgeon. Pain is improving. Denies nausea, vomiting, fever, chills today. No diarrhea today. She is expected to be discharged today. - Constitutional Vitals: Temp Pulse Resp BP Pulse Ox 98.6 F 102 18 124/89 98 09/30/16 11:13 09/30/16 11:13 09/30/16 11:13 09/30/16 11:13 09/30/16 11:13 Exam: General: Not in acute distress at the time of my evaluation Lungs: Clear to auscultation. There is an open area of the incision on the left posterior chest wall Cardiac: Regular rate and rhythm. No significant murmurs Abdomen: Soft, non tender. Bowel sounds present Neurological: Alert and oriented. No gross localizing deficits Psych: Not agrressive or agitated Extremities: B/L leg edema Skin: No generalized rash Internal Medicine: Result - Labs CBC & Chem 7: 09/30/16 04:19 09/30/16 04:19 Labs: Short CBC 09/30/16 Range/Units 04:19 WBC 11.0 (4.3-11.1) K/mcL Hgb 7.5 L (11.5-15.4) g/dL Hct 23.0 L (35.3-44.9) % Plt Count 638 H (140-400) K/mcL Neutrophils # 6.8 (1.6-8.9) K/mcL BMP 09/30/16 04:19 Sodium 139 Potassium 3.6 Chloride 105 Carbon Dioxide 24 BUN 9 Creatinine 1.32 H Glucose 90 Calcium 8.5 L - ABG Interpretation ABG results: ABG ABG pH 7.37 pH Units (7.32-7.45) 09/22/16 04:25 ABG pCO2 38 mmHg (35-45) 09/22/16 04:25 ABG pO2 85 mmHg (85-104) 09/22/16 04:25 ABG O2 Saturation 96 % (95-98) 09/22/16 04:25 PT/INR, D-dimer PT 16.6 Seconds (9.4-12.1) H 09/21/16 04:11 - Impressions Impressions Chest X-Ray 09/30/16 00:01 IMPRESSION: Grossly stable left lung airspace disease. D/ / Yoandy Corado MD / Yoandy Corado MD Interpreting Provider: Yoandy Corado MD - VTE Documentation of Mechanical Device: Intermittent pneumatic compression device Consult Discharge Plan - Plan Instructions: Oxycodone/Acetaminophen (By mouth), Amoxicillin/Clavulanate Potassium (By mouth), Chest Tubes (DC), Chest Tubes (GEN), Thoracotomy (DC), Lung Lobectomy (DC), Sepsis (DC), Anemia (GEN) Referrals: wound, check [Other] - 10/06/16 2:45 pm (THIS APPOINTMENT IS FOR A WOUND CHECK WITH DR. HURTADO.) Kathy Interiano CNP [Primary Care Provider] - 10/04/16 11:00 am () Mindi Hurtado MD [Partnered Physician] - 10/20/16 1:20 pm Prescriptions: OxyCODONE/APAP 5/325 [Percocet 5/325 MG] 1 each PO Q4HR PRN #50 tablet PRN Reason: Pain Amoxicillin/Clavulanate [Augmentin] 875 mg PO BIDWM #28 tablet
[2016-09-30] MEDS ORDERED: Famotidine 20 MG TABLET PO SCH (21:00)
== END 2016-09-30 18:30 | disposition home or self-care (01) | DRG 853 ==
LOC: EMEROO 17:46 → 3BNU 17:46 → SUATTDRO 09-20 00:29 → 2NNU 09-20 18:59 → ICNU 09-21 10:00 → 2NNU 09-23 16:53
PROVIDERS: ADMIT Internal Medicine Sleep Medicine; ATTEND Internal Medicine